=== PATIENT | female | born 1980 | race Caucasian/White ===

== ENCOUNTER 2020-10-11 14:17 | Outpatient (REF) | payer MEDICAID, SELFPAY | END 2020-10-11 14:18 | disposition home or self-care (01) | LOC: HO.LAB 14:17 | PROVIDERS: Visit Provider Internal Medicine | DX: Z20.828 Contact with and (suspected) exposure to other viral communicable diseases (principal) | CPT/HCPCS: C9803; U0003 ==

== ENCOUNTER 2021-10-28 04:28 | Emergency (ER) | payer MEDICAID, SELFPAY ==
--- NOTE | ~2021-10-28 | XR_ITS ---
EXAMINATION: XR ABDOMEN KUB CLINICAL INDICATION: Abdominal pain COMPARISON: None TECHNIQUE: 2 views of the abdomen. FINDINGS: The bowel gas pattern is normal with no evidence of ileus or obstruction. No unusual soft tissue calcifications are noted. The bones are unremarkable. XR/XR KUB IMPRESSION: Unremarkable examination.
[2021-10-28 04:37] VITALS: BP 134/91; PULSE 82; RESP 18; TEMP 36.4; O2SAT 100; BMI 28.0
[2021-10-28 04:45] VITALS: RESP 16
[2021-10-28 05:08] LABS: Appearance Urine HAZY; Color Urine YELLOW; Glucose Urine UA NEG (NEG); Leukocyte Esterase Urine NEG (NEG); Nitrite Urine NEG (NEG); Specific Gravity - Urine >= 1.030 (1.005-1.025); UACC Culture Trigger NO; Urine Blood 2+ (NEG); Urine Ketones NEG (NEG); Urine Protein NEG (NEG-TRACE)
[2021-10-28 05:10] LABS: UPreg QC Valid YES; Urine Pregnancy NEGATIVE (NEGATIVE)
[2021-10-28 05:15] LABS: Mucus Urine 2+ /LPF; Squamous Epithelial Cell Urine 2+ /LPF
[2021-10-28 05:16] LABS: Bacteria Urine 1+ /LPF; Tyrosine Crystal Urine TRACE /LPF; WBC Urine 0 /HPF (0-4)
[2021-10-28 05:23] LABS: Basophils Percent Auto 0.3 % (0-2); Eosinophils Absolute Auto 0.2 X10*3/uL (0.0-0.4); Eosinophils Percent Auto 1.5 % (0-4); Hematocrit 37.4 % (37.0-47.0); Hemoglobin 11.6 g/dl (12.0-16.0); Imm Gran Abs Auto 0.03 X10*3/uL (0.00-0.03); Imm Gran Pct Auto 0.3 % (0.0-0.4); Lymphocytes Absolute Auto 2.6 X10*3/uL (1.2-4.9); Lymphocytes Percent Auto 22.7 % (20-40); MANUAL DIFF FLAG NO; Mean Corpuscular Hemoglobin 28.3 pg (27.0-33.0); Mean Corpuscular Volume 91.2 fL (80.0-98.0); Mean Platelet Volume 9.6 fL (9.4-12.3); Monocytes Absolute Auto 0.8 X10*3/uL (0.1-1.2); Monocytes Percent Auto 6.9 % (2-11); Neutrophils Absolute Auto 7.9 x10*3/uL (2.0-8.3); Neutrophils Percent Auto 68.3 % (45-73); Platelet Count 302 X10*3/uL (160-400); Red Cell Distribution Width 13.2 % (11.0-16.0); White Blood Count 11.6 X10*3/uL (4.8-10.8)
[2021-10-28 05:44] LABS: Alanine Aminotransferase 17 U/L (0-31); Albumin Level 4.1 g/dL (3.5-5.0); Alkaline Phosphatase 42 U/L (39-117); Anion Gap 12 (12-20); Aspartate Amino Transferase 17 U/L (5-31); Bilirubin Total 0.3 mg/dL (0.0-1.0); Blood Urea Nitrogen 16 mg/dL (9-16); Calcium 9.4 mg/dL (8.4-10.2); Carbon Dioxide 25 mmol/L (22-29); Chloride 109 mmol/L (96-108); Creatinine Clr Calc Pharmacy 101.3; Estimated Glomerular Filt Rate > 60; Glucose Random 105 mg/dL (60-115); Lipase 39 U/L (8-78); Potassium 4.1 mmol/L (3.3-5.1); Sodium 142 mmol/L (135-145); Total Protein 7.2 g/dL (6.5-8.0)
[2021-10-28 06:00] LABS: Bilirubin Direct < 0.2 mg/dL (0.0-0.5)
--- NOTE | 2021-10-28 06:26 | ED_ITS ---
HPI - Abdominal Pain General Chief Complaint: Abdominal Pain Stated Complaint: abd pain/constipation Time Seen by Provider: 10/28/21 06:18 Source: patient Mode of arrival: ambulatory Limitations: no limitations History of Present Illness HPI narrative: Patient comes to the emergency room complaining of constipation for 5 days. Patient states she has not been able to move her bowels despite using [id number] [employer] brand laxatives. Patient denies fever chills, pain does not worsen with foods. Patient denies dysuria. Related Data Previous Rx's Medication Instructions Recorded polyethylene glycol 3350 17 17 g PO BID #510 g 10/28/21 gram/dose oral powder (Miralax) Allergies Allergy/AdvReac Type Severity Reaction Status Date / Time oxycodone [OXYCODONE] Allergy Unknown DIZZY,SWEAT Unverified 08/10/20 16:40 ING Review of Systems Review of Systems Constitutional : No Weight loss, No Fever, No Chills, No Night Sweats, No Fatigue, No Malaise ENT/Mouth : No Hearing loss, No Ear Pain, No Nasal Congestion, No Sinus Pain, No Hoarseness, No sore throat, No Rhinorrhea, No Swallowing Difficulty Eyes: No Eye Pain, No Swelling, No Redness, No Foreign Body, No Discharge, No Vision Changes Cardiovascular : No Chest Pain, No SOB, No Dyspnea on Exertion, No Orthopnea, No Edema, No Palpitations Respiratory : No Cough, No Sputum, No Wheezing, No Smoke Exposure, No Dyspnea Gastrointestinal : No Nausea, No Vomiting, No Diarrhea, complaining of Constipation, complaining of abdominal distension Genitourinary : no irregular bleeding, No Dysuria, No Urinary Frequency, No Hematuria, No Urinary Incontinence, No Urgency, No Flank Pain, No Urinary Flow Changes, No Hesitancy Musculoskeletal : No joint pain, No Myalgias, No Joint Swelling Skin : No Skin Lesions, No rash Neuro : No Weakness, No Numbness, No Paresthesias, No Loss of Consciousness, No Dizziness, No Headache Psych : No Anxiety/Panic, No Depression, No SI/HI/AH/VH, No Social Issues, Heme/Lymph: No Bruising, No Bleeding,No Lymphadenopathy Endocrine : No Polyuria, No Polydipsia, No Temperature Intolerance Physical Exam Vital Signs: Vital Signs: Last Vital Signs Temp 97.6 F 10/28/21 04:37 Pulse 82 10/28/21 04:37 Resp 16 10/28/21 04:45 BP 134/91 H 10/28/21 04:37 Pulse Ox 100 10/28/21 04:37 BMI result Body Mass Index 28.0 Const: Other: Appearance: Alert. Oriented X3. No acute distress. Well- appearing Eyes: Pupils equal, round and reactive to light. ENT: Pharynx normal. Neck: Normal inspection. Neck supple. No lymph nodes noted. No crepitus CVS: Normal heart rate and rhythm. Pulses normal. Normal S1 and S2 Respiratory: No respiratory distress. Breath sounds normal. No Wheezing. No rales Abdomen: Soft and nontender. No rigidity. No distention. Skin: Skin warm and dry. Normal skin color. Normal skin turgor. Extremities: No lower extremity edema. No Lacerations. No Rash Neuro: Oriented X 3. No motor deficit. No sensory deficit. Moving all extermities. No slurred speech. Course Course Course Narrative: KUB shows normal hair pattern. White blood cell count 11.6, chemistry within normal limits, LFTs within normal limits. Patient will try MiraLax this time. Patient will follow-up with her primary care physician. MDM - Abdominal Pain Lab Data Result diagrams: 10/28/21 05:16 10/28/21 05:16 Labs: Lab Results 10/28/21 10/28/21 10/28/21 Range/Units 05:02 05:02 05:16 WBC 11.6 H (4.8-10.8) X10*3/uL RBC 4.10 L (4.20-5.50) X10*6/uL Hgb 11.6 L (12.0-16.0) g/dl Hct 37.4 (37.0-47.0) % MCV 91.2 (80.0-98.0) fL MCH 28.3 (27.0-33.0) pg MCHC 31.0 (31.0-35.0) g/dl RDW 13.2 (11.0-16.0) % Plt Count 302 (160-400) X10*3/uL MPV 9.6 (9.4-12.3) fL Immature Gran % (Auto) 0.3 (0.0-0.4) % Neut % (Auto) 68.3 (45-73) % Lymph % (Auto) 22.7 (20-40) % [place] % (Auto) 6.9 (2-11) % Eos % (Auto) 1.5 (0-4) % Baso % (Auto) 0.3 (0-2) % Lymph # (Auto) 2.6 (1.2-4.9) X10*3/uL [place] # (Auto) 0.8 (0.1-1.2) X10*3/uL Eos # (Auto) 0.2 (0.0-0.4) X10*3/uL Baso # (Auto) 0.0 (0.0-0.2) X10*3/uL Abs Immat Gran (auto) 0.03 (0.00-0.03) X10*3/uL Absolute Neuts (auto) 7.9 (2.0-8.3) x10*3/uL Absolute Nucleated RBC 0.000 (0.0-0.012) X10*3/uL Nucleated RBC % (auto) 0.0 (0.0-0.2) /100WBC Sodium (135-145) mmol/L Potassium (3.3-5.1) mmol/L Chloride (96-108) mmol/L Carbon Dioxide (22-29) mmol/L Anion Gap (12-20) BUN (9-16) mg/dL Creatinine (0.5-1.4) mg/dL Estim Creat Clear Calc Estimated GFR Random Glucose (60-115) mg/dL Calcium (8.4-10.2) mg/dL Total Bilirubin (0.0-1.0) mg/dL Direct Bilirubin (0.0-0.5) mg/dL AST (5-31) U/L ALT (0-31) U/L Alkaline Phosphatase (39-117) U/L Total Protein (6.5-8.0) g/dL Albumin (3.5-5.0) g/dL Lipase (8-78) U/L Urine Color YELLOW Urine Appearance HAZY Urine pH 6.0 (5.0-8.0) Ur Specific [place] >= 1.030 H (1.005-1.025) Urine Protein NEG (NEG-TRACE) MG/DL Urine Glucose (UA) NEG (NEG) MG/DL Urine Ketones NEG (NEG) MG/DL Urine Blood 2+ H (NEG) Urine Nitrite NEG (NEG) Ur Leukocyte Esterase NEG (NEG) Urine RBC 5-9 H (0) /HPF Urine WBC 0 (0-4) /HPF Ur Squamous Epith Cells 2+ /LPF Tyrosine Crystals TRACE /LPF Urine Bacteria 1+ /LPF Urine Mucus 2+ /LPF Urine Test NEGATIVE (NEGATIVE) 10/28/21 Range/Units 05:16 WBC (4.8-10.8) X10*3/uL RBC (4.20-5.50) X10*6/uL Hgb (12.0-16.0) g/dl Hct (37.0-47.0) % MCV (80.0-98.0) fL MCH (27.0-33.0) pg MCHC (31.0-35.0) g/dl RDW (11.0-16.0) % Plt Count (160-400) X10*3/uL MPV (9.4-12.3) fL Immature Gran % (Auto) (0.0-0.4) % Neut % (Auto) (45-73) % Lymph % (Auto) (20-40) % [place] % (Auto) (2-11) % Eos % (Auto) (0-4) % Baso % (Auto) (0-2) % Lymph # (Auto) (1.2-4.9) X10*3/uL [place] # (Auto) (0.1-1.2) X10*3/uL Eos # (Auto) (0.0-0.4) X10*3/uL Baso # (Auto) (0.0-0.2) X10*3/uL Abs Immat Gran (auto) (0.00-0.03) X10*3/uL Absolute Neuts (auto) (2.0-8.3) x10*3/uL Absolute Nucleated RBC (0.0-0.012) X10*3/uL Nucleated RBC % (auto) (0.0-0.2) /100WBC Sodium 142 (135-145) mmol/L Potassium 4.1 (3.3-5.1) mmol/L Chloride 109 H (96-108) mmol/L Carbon Dioxide 25 (22-29) mmol/L Anion Gap 12 (12-20) BUN 16 (9-16) mg/dL Creatinine 0.70 (0.5-1.4) mg/dL Estim Creat Clear Calc 101.3 Estimated GFR > 60 Random Glucose 105 (60-115) mg/dL Calcium 9.4 (8.4-10.2) mg/dL Total Bilirubin 0.3 (0.0-1.0) mg/dL Direct Bilirubin < 0.2 (0.0-0.5) mg/dL AST 17 (5-31) U/L ALT 17 (0-31) U/L Alkaline Phosphatase 42 (39-117) U/L Total Protein 7.2 (6.5-8.0) g/dL Albumin 4.1 (3.5-5.0) g/dL Lipase 39 (8-78) U/L Urine Color Urine Appearance Urine pH (5.0-8.0) Ur Specific [place] (1.005-1.025) Urine Protein (NEG-TRACE) MG/DL Urine Glucose (UA) (NEG) MG/DL Urine Ketones (NEG) MG/DL Urine Blood (NEG) Urine Nitrite (NEG) Ur Leukocyte Esterase (NEG) Urine RBC (0) /HPF Urine WBC (0-4) /HPF Ur Squamous Epith Cells /LPF Tyrosine Crystals /LPF Urine Bacteria /LPF Urine Mucus /LPF Urine Test (NEGATIVE) Discharge Plan Discharge Clinical Impression: Constipation Qualifiers: Constipation type: unspecified constipation type Qualified Code(s): K59.00 - Constipation, unspecified Patient Disposition: Home, Self-Care Instructions: Constipation (ED) Additional Instructions: Please follow-up with your primary care physician tomorrow. If you have any worsening or new symptoms, please return to the emergency room or call 911 Prescriptions: New polyethylene glycol 3350 [Miralax] 17 gram/dose powder 17 g PO BID Qty: 510 RF: 0 PMFSH Social History Social History Advance Directives: No Advance Directives Information Provided: Yes
[2021-10-28 06:35] VITALS: BP 126/83; PULSE 79; RESP 16; TEMP 36.6; O2SAT 100
== END 2021-10-28 06:48 | disposition home or self-care (01) ==
PROVIDERS: Emergency Provider Emergency Medicine
DX: K59.00 Constipation, unspecified (principal)
CPT/HCPCS: 36415; 74018; 80053; 81001; 81025; 82248; 83690; 85025; 99283; 99284

== ENCOUNTER 2022-03-08 12:15 | Outpatient (REF) | payer MEDICAID, SELFPAY ==
--- NOTE | ~2022-03-08 | XR_ITS ---
EXAMINATION: XR CHEST CLINICAL INFORMATION: Preoperative assessment COMPARISON: 08/11/2018 TECHNIQUE: 2 views of the chest were obtained. FINDINGS: No significant abnormality is noted involving the heart, lungs, mediastinum, bony thorax or soft tissues. XR/XR chest 2V IMPRESSION: Unremarkable examination.
== END 2022-03-08 12:16 | disposition home or self-care (01) ==
LOC: HO.XRAY 12:15
PROVIDERS: Absent Provider Internal Medicine; PCP Internal Medicine; Visit Provider Family Medicine
DX: Z01.818 Encounter for other preprocedural examination (principal)
CPT/HCPCS: 71046

== ENCOUNTER 2024-09-24 11:07 | Outpatient (REF) | payer MEDICAID, SELFPAY ==
[2024-09-24 13:29] LABS: MANUAL DIFF FLAG NO
[2024-09-24 13:38] LABS: Basophils Percent Auto 0.7 % (0-2); Eosinophils Absolute Auto 0.1 X10*3/uL (0.0-0.4); Eosinophils Percent Auto 1.3 % (0-4); Hematocrit 34.8 % (37.0-47.0); Hemoglobin 11.2 g/dl (12.0-16.0); Imm Gran Abs Auto 0.01 X10*3/uL (0.00-0.03); Imm Gran Pct Auto 0.2 % (0.0-0.4); Lymphocytes Absolute Auto 1.8 X10*3/uL (1.2-4.9); Mean Corpuscular HGB Conc 32.2 g/dl (31.0-35.0); Mean Corpuscular Hemoglobin 28.8 pg (27.0-33.0); Mean Corpuscular Volume 89.5 fL (80.0-98.0); Mean Platelet Volume 10.2 fL (9.4-12.3); Monocytes Absolute Auto 0.4 X10*3/uL (0.1-1.2); Monocytes Percent Auto 6.6 % (2-11); Neutrophils Absolute Auto 3.2 x10*3/uL (2.0-8.3); Neutrophils Percent Auto 58.2 % (45-73); Platelet Count 343 X10*3/uL (160-400); Red Blood Count 3.89 X10*6/uL (4.20-5.50); Red Cell Distribution Width 13.2 % (11.0-16.0); White Blood Count 5.5 X10*3/uL (4.8-10.8)
[2024-09-24 14:22] LABS: Iron 124 mcg/dL (30-160); Percent Iron Saturation 43 % (15-50); Total Iron Binding Capacity 288 mcg/dL (228-428); Unsaturated Iron Binding 164 ug/dL
[2024-09-24 14:41] LABS: Folate 14.7 ng/mL (> or = 4.0); Vitamin B12 342 pg/mL (200-900)
== END 2024-09-24 11:08 | disposition home or self-care (01) ==
LOC: HO.HHCL 11:07
PROVIDERS: Visit Provider Internal Medicine
DX: D50.8 Other iron deficiency anemias (principal)
CPT/HCPCS: 36415; 82607; 82746; 83540; 85025

== ENCOUNTER 2025-01-28 08:57 | Emergency (ER) | payer MEDICAID, SELFPAY ==
[2025-01-28 09:20] VITALS: BP 121/81; PULSE 86; RESP 18; TEMP 36.4; O2SAT 99; BMI 29.4
[2025-01-28 09:43] LABS: MANUAL DIFF FLAG NO
[2025-01-28 09:52] LABS: IDNOW Serial# 58CA691E; Strep A Nucleic Acid Negative (Negative)
[2025-01-28 09:54] LABS: Basophils Percent Auto 0.6 % (0-2); Eosinophils Absolute Auto 0.1 X10*3/uL (0.0-0.4); Eosinophils Percent Auto 1.1 % (0-4); Hematocrit 34.9 % (37.0-47.0); Hemoglobin 11.4 g/dl (12.0-16.0); Lymphocytes Absolute Auto 1.8 X10*3/uL (1.2-4.9); Lymphocytes Percent Auto 37.3 % (20-40); Mean Corpuscular HGB Conc 32.7 g/dl (31.0-35.0); Mean Corpuscular Hemoglobin 28.6 pg (27.0-33.0); Mean Corpuscular Volume 87.5 fL (80.0-98.0); Mean Platelet Volume 9.7 fL (9.4-12.3); Monocytes Absolute Auto 0.4 X10*3/uL (0.1-1.2); Monocytes Percent Auto 8.1 % (2-11); Neutrophils Absolute Auto 2.5 x10*3/uL (2.0-8.3); Neutrophils Percent Auto 52.9 % (45-73); Platelet Count 317 X10*3/uL (160-400); Red Blood Count 3.99 X10*6/uL (4.20-5.50); Red Cell Distribution Width 13.3 % (11.0-16.0); White Blood Count 4.7 X10*3/uL (4.8-10.8)
[2025-01-28 10:07] LABS: Alanine Aminotransferase 30 U/L (0-31); Albumin Level 4.2 g/dL (3.5-5.0); Alkaline Phosphatase 45 U/L (39-117); Anion Gap 9 (12-20); Aspartate Amino Transferase 24 U/L (5-31); Bilirubin Total 0.7 mg/dL (0.0-1.0); Blood Urea Nitrogen 13 mg/dL (9-16); Calcium 9.4 mg/dL (8.4-10.2); Carbon Dioxide 30 mmol/L (22-29); Chloride 104 mmol/L (96-108); Creatinine Clr Calc Pharmacy 92.9; Estimated Glomerular Filt Rate > 60; Glucose Random 97 mg/dL (60-115); Potassium 4.2 mmol/L (3.3-5.1); Sodium 139 mmol/L (135-145); Total Protein 7.3 g/dL (6.5-8.0)
[2025-01-28 10:08] LABS: HCG Quantitative < 2 mIU/mL
--- NOTE | 2025-01-28 12:07 | ED_ITS ---
HPI - General Adult General Chief complaint: General Medical Stated complaint: Pain in breasts Time Seen by Provider: 01/28/25 12:06 Source: patient, RN notes reviewed, old records reviewed and unit leader Mode of arrival: ambulatory Limitations: language barrier History of Present Illness ED Provider: Jaycob [facility] narrative: patient is a 44-year-old Vietnamese-speaking female presenting to the emergency department with complaint of bilateral breast tenderness over the past 2 weeks. Last menstrual period was January 19 and patient reports that some breast tenderness is normal for her around her menses, however, this tenderness is lasting longer than normal. She denies any lumps or masses. Denies any discharge or drainage from nipples. Also reports that she had a URI around 3 months ago and is continuing to have a dry sensation to her throat. Denies recent fevers. Denies cough or shortness of breath. complaint: breast tenderness Onset (ago): week(s) Location: chest Radiation: non-radiation Severity: moderate Quality: aching Pain Consistency: colicky Relieving factors: none Exacerbating factors: none Associated symptoms: denies other symptoms Treatments prior to arrival: none Related Data Previous Rx's ?Medication ?Instructions ?Recorded polyethylene glycol 3350 17 17 g PO BID #510 grams 10/28/21 gram/dose oral powder (Miralax) Allergies Allergy/AdvReac Type Severity Reaction Status Date / Time oxycodone [OXYCODONE] Allergy Unknown DIZZY,SWEAT Verified 01/28/25 09:21 ING Review of Systems 2 Review of Systems: As per HPI Yes all other systems are reviewed and are negative Constitutional: Constitutional: Reports as per HPI [facility] Social History Social History Advance Directives: No Advance Directives Information Provided: Yes Do you have a plan to hurt others: No Plan Physical Exam ED Vital Signs: Vital Signs - 24 hr 01/28/25 09:20 01/28/25 12:17 Temperature 97.6 F Pulse Rate 86 91 Respiratory Rate 18 16 Blood Pressure 121/81 120/77 Pulse Oximetry 99 99 Oxygen Delivery Method Room Air Room Air BMI result Body Mass Index 29.4 Vital signs have been reviewed and appear to be correct. Blood pressure normal. Heart rate normal. Respiratory rate normal. Temperature normal. Oxygen saturation normal. Const General: cooperative, healthy appearing and no acute distress Orientation/consciousness: oriented to person, oriented to place, oriented to time and patient oriented x3 Limitations: no limitations HENMT Head: Yes normocephalic and Yes atraumatic Ears: external ears normal General nose exam: Normal external nose present Face and sinus: Yes face symmetric Mouth: oropharynx normal and moist mucous membranes Throat: Yes posterior oropharynx normal, Yes uvula midline and No uvular edema Eyes Pupils: Equal, round and reactive pupils present Neck Neck: Yes normal visual inspection, Yes no lymphadenopathy and Yes supple Chest Chest palpation & inspection: normal inspection of the chest and normal palpation of entire chest wall Breast/axilla inspection: normal inspection of the breasts and normal inspection of the axillae Breast/axilla palpation: normal palpation of the breasts, normal palpation of the axillae and no axillary lymphadenopathy Resp Effort & Inspection: normal respiratory effort and able to speak in complete sentences Auscultation: clear to auscultation bilaterally Cardio Rate: regular rate Rhythm: regular rhythm Heart sounds: S1 normal heart sound present and S2 normal heart sound present GI Palpation (GI): Soft to palpation and nontender Auscultation: normoactive bowel sounds General: Yes no CVA tenderness Back/Spine/Pelvis Back: no CVA tenderness Skin General skin exam: elasticity normal and turgor normal Neuro General: oriented to person, oriented to place, oriented to time, patient oriented x3, moves all extremities, no focal motor deficits and CN's II-XI intact bilaterally Cranial nerves: Yes Equal, round and reactive pupils present Cognition (Neuro): normal cognition Extrem General: Yes full ROM, Yes no pedal edema and Yes no calf tenderness Psych Mental Status: mental status grossly normal Affect: normal affect Thought process: Normal thought process present Medical Decision Making Medical Decision Making MDM Narrative: patient is a 44-year-old Vietnamese-speaking female presenting to the emergency department with complaint of bilateral breast tenderness over the past 2 weeks. On exam patient is awake, A+Ox3, VS WNL, afebrile, normal neurological exam without focal deficits, physical exam findings as above. Given reported symptoms and physical exam findings, initial differential includes but is not limited to breast mass, cellulitis/abscess, cyclical breast pain, strep pharyngitis. No mass, abscess or cellulitis noted on physical exam. Labs unremarkable. Strep swab negative. No axillary, cervical lymphadenopathy noted on exam. Advised patient to follow-up with OBGYN this week. Return precautions discussed at bedside. Patient verbalized understanding of and agreement with plan. In-person slug press operator was utilized for all interactions, assessments, and discussions. Differential Diagnosis Differential Diagnoses: The differential diagnosis associated with the presentation includes As per [facility] Lab Data [facility] Lab Attestation statement: I reviewed the patient's lab results. as per [facility] 01/28/25 09:36 01/28/25 09:36 Labs: Lab Results 01/28/25 01/28/25 Range/Units 09:36 09:37 WBC 4.7 L (4.8-10.8) X10*3/uL RBC 3.99 L (4.20-5.50) X10*6/uL Hgb 11.4 L (12.0-16.0) g/dl Hct 34.9 L (37.0-47.0) % MCV 87.5 (80.0-98.0) fL MCH 28.6 (27.0-33.0) pg MCHC 32.7 (31.0-35.0) g/dl RDW 13.3 (11.0-16.0) % Plt Count 317 (160-400) X10*3/uL MPV 9.7 (9.4-12.3) fL Immature Gran % (Auto) 0.0 (0.0-0.4) % Neut % (Auto) 52.9 (45-73) % Lymph % (Auto) 37.3 (20-40) % [place] % (Auto) 8.1 (2-11) % Eos % (Auto) 1.1 (0-4) % Baso % (Auto) 0.6 (0-2) % Lymph # (Auto) 1.8 (1.2-4.9) X10*3/uL [place] # (Auto) 0.4 (0.1-1.2) X10*3/uL Eos # (Auto) 0.1 (0.0-0.4) X10*3/uL Baso # (Auto) 0.0 (0.0-0.2) X10*3/uL Abs Immat Gran (auto) 0.00 (0.00-0.03) X10*3/uL Absolute Neuts (auto) 2.5 (2.0-8.3) x10*3/uL Absolute Nucleated RBC 0.000 (0.0-0.012) X10*3/uL Nucleated RBC % (auto) 0.0 (0.0-0.2) /100WBC Sodium 139 (135-145) mmol/L Potassium 4.2 (3.3-5.1) mmol/L Chloride 104 (96-108) mmol/L Carbon Dioxide 30 H (22-29) mmol/L Anion Gap 9 L (12-20) BUN 13 (9-16) mg/dL Creatinine 0.73 (0.5-1.4) mg/dL Estim Creat Clear Calc 92.9 Estimated GFR > 60 Random Glucose 97 (60-115) mg/dL Calcium 9.4 (8.4-10.2) mg/dL Total Bilirubin 0.7 (0.0-1.0) mg/dL AST 24 (5-31) U/L ALT 30 (0-31) U/L Alkaline Phosphatase 45 (39-117) U/L Total Protein 7.3 (6.5-8.0) g/dL Albumin 4.2 (3.5-5.0) g/dL Beta HCG, Quant < 2 mIU/mL S. pyogenes GrpA KAM Negative (Negative) External Record Review External record reviewed: Inpatient record, Office record and Outpatient record Discharge Plan Discharge Clinical Impression: Breast tenderness in female Patient Disposition: Home, Self-Care Instructions: Breast Self Exam for Women (ED) Additional Instructions: You were evaluated in the emergency department today for breast tenderness. Your physical exam was reassuring but we recommend that you follow up with your PACK OPERATOR this week. Return to the emergency department if you develop new or concerning symptoms. Prescriptions: No Action polyethylene glycol 3350 [Miralax] 17 gram/dose powder 17 g PO BID Qty: 510 0RF Print Language: Vietnamese
[2025-01-28 12:17] VITALS: BP 120/77; PULSE 91; RESP 16; O2SAT 99
[2025-01-28 13:14] VITALS: BP 120/77; PULSE 91; RESP 16; TEMP 36.9; O2SAT 99
--- OUTSIDE RECORDS SUMMARY | 2025-01-28 14:25 | XMS_ITS | Encounter Summary ---
Author Organization [employer] Address [address] [place] [address] Care Team Providers Care Beef Killer Name Role Phone Lucio Arroyo MD Primary Care Prov ider Reason for Visit * Reason Comments Med Refill Encounter Details Date Type Department Care Team ([facility] st Contact Info) Description 10/10/2024 Refill [facility] [address] [place], [place] [phone] Lucio Arroyo MD [address] [place] [address] Acute periapical abscess Social History Tobacco Use Types Packs/Day Years Used Date Smoking Tobacco: Never Passive Smoke Exposure: Never Smokeless Tobacco: Never Alcohol Use Standard Drinks/Week Comments Never 0 (1 standard drink = 0.6 oz pur e alcohol) Depression Answer Date Recorded Patient Health Questionnaire-9 Score 0 02/26/2024 Patient Health Questionnaire-9 Score 0 02/26/2024 Last PHQ-9: Questionnaire Data Not on file 0 02/26/2024 Housing Stability Answer Date Recorded What is your housing situation today? I have crow carol 02/26/[address] you li ve. Do you have problems with any of the following? None of the above 02/26/2024 Food Insecurity Answer Date Recorded Within the past 12 months, y ou worried that your food would run out before you got money to buy more: Never True 02/26/2024 Within the past 12 months,th e food you bought just didn't last and you didn't have enough money to get more: Never True 02/2024 Transportation Answer Date Recorded In the past 12 months, has l ack of transportation kept you from medical appts, meetings, work or from getting things needed for daily living? No 02/26/2024 Utilities Answer Date Recorded In the past 12 months, has t he electric, gas, oil or water company threatened to shut off services in your home? No 02/26/2024 Depression Answer Date Recorded Patient Health Questionnaire-2 Score 0 02/26/2024 Comments No Sex and Gender Information Value Date Recorded Sex Assigned at Female 09/23/2022 10:15 AM EDT Legal Sex Female 10:15 AM EDT Gender Identity Female 09/23/2022 10:15 AM EDT Sexual Orientation Straight 09/23/2022 10 :15 AM EDT documented as of this encounter Plan of Treatment Upcoming Encounters Date Type Department Care Team (Late st Contact Info) Description 03/17/2025 11:00 AM EDT Office Visit [facility] [address] [place] [address] Liyah Cisneros documented as of this encounter Visit Diagnoses Diagnosis Acute periapical abscess documented in this encounter Additional Health Concerns Assessment Noted Time PHQ-9 Depression Total Score: 0 02/26/20 24 10:35 AM EDT documented as of this encounter Care Teams Beef Killer Relationship Specialty Start Date End Date Lucio Arroyo MD [address] [place] [address] PCP - General Internal Medicine 04/03/20 documented as of this encounter
--- OUTSIDE RECORDS SUMMARY | 2025-01-28 14:25 | XMS_ITS | Encounter Summary ---
Author Organization [employer] Address [address] [facility] 7t [place] [address] Care Team Providers Care Periodicals Clerk Name Role Phone Lucio Arroyo MD Primary Care Prov ider Encounter Details Date Type Department Care Team (Late st Contact Info) Description 01/28/2025 Orders Only GENERIC EXTERNAL DATA DEPARTMENT Provider, Generic External Data Social History Tobacco Use Types Packs/Day Years [...] your housing situation today? I have crow medina 02/26/[address] you li [...] Description 03/17/2025 11:00 AM EDT Office Visit [facility] [address] [facility] [place] [address] Liyah Cisneros documented as of this encounter Procedures Procedure Name Priority Date/Time Associated Diagnosis Comments STREP A NUCLEIC ACID Routine 01/28/2025 9:37 AM EST CBC WITH AUTO DIFFERENTIAL Routine 01/28/2025 9:36 AM EST HCG, TOTAL, QN Routine 01/28/2025 9:36 AM EST COMPREHENSIVE METABOLIC PANEL Routine 01/28/2025 9:36 AM EST documented in this encounter Results * Strep A Nucleic Acid (01/28/2025 9:37 AM EST) IDNOW SERIAL# [id number] [facility] Strep A Nucleic Acid Negative Negative [facility] Comment:All test results mus t be correlated with clinical findings.This test has not been evaluated for monitoring treatment ofinfection.Additional follow-up testing using the culture method isrequired if the result is negative and clinical symptomspersist, or in the event of an acute rheumatic feveroutbreak. 01/28/2025 9:37 AM EST 01/28/2025 9:41 AM EST us Generic External Data Provider LAB MICROBIOLOGY - GENERAL ORDERABLES Final Result [facility] [address] [place] [address] [phone] * hCG, Total, Quantitative (01/28/2025 9:36 AM EST) Pathologist [facility] HCG Quantitative <2 mIU/mL [facility] Comment:Weeks post LMP Appro ximate hCG(Last Menstrual Period) Range (mIU/ml)3 - 4 weeks 9 - 1304 - 5 weeks 75 - 2,6005 - 6 weeks 850 - 20,8006 - 7 weeks 4000 - 100,2007 - 12 weeks 11,500 - 289,95134 - 16 weeks 18,300 - 137,15622 - 29 weeks (2nd trimester) 1,400 - 53,09198 - 41 weeks (3rd trimester) 940 - 60,000The Shahid B- hCG assay is used for the early detection ofpregnancy; it cannot be used to diagnose any conditionunrelated to . If a B-hCG level is not supportedby the clinical evidence, results should be confirmed by analternative method (qualitative urine hCG, for example). 01/28/2025 9:36 AM EST 01/28/2025 9:41 AM EST us Generic External Data Provider LAB BLOOD ORDERAB LES Final Result [facility] [address] [place] [address] [phone] * (ABNORMAL) Comprehensive Metabolic Panel (01/28/2025 9:36 AM EST) [facility] Sodium 139 135 - 145 mmol/L [facility] Potassium 4.2 3.3 - 5.1 mmol/L [facility] Chloride 104 96 - 108 mmol/L [facility] Carbon Dioxide 30(H) 22 - 29 mmol/L [facility] Anion Gap 9(L) 12 - 20 [facility] Urea Nitrogen (BUN) 13 9 - 16 mg/dL [facility] Creatinine, Serum 0.73 0.5 - 1.4 mg/dL [facility] Creatinine Clr Calc Pharmacy 92.9 [facility] Comment:Provided height and weight: 157.48 cm,73.028 kg.eGFR (calculated from the MDRD study equation) and eCrCl(calculated from the Cockcroft-Gault equation) are based ondifferent parameters and may not yield comparable results.If eCrCl result is absurd, please check patient'sheight/weight. Estimated Glomerular Filt Rate >60 [facility] Comment:Chronic Kidney Disea se: Estimated GFR < 60 mL/min/1.36o7Flntth Kidney Disease: Estimated GFR < 15 mL/min/1.73m2 Glucose 97 60 - 115 mg/dL [facility] Calcium 9.4 8.4 - 10.2 mg/dL [facility] Bilirubin, Total 0.7 0.0 - 1.0 mg/dL [facility] Aspartate Amino Transferase 24 5 - 31 U/L [facility] Alanine Aminotransferase 30 0 - 31 U/L [facility] Total Protein 7.3 6.5 - 8.0 g/dL [facility] Albumin Level 4.2 3.5 - 5.0 g/dL [facility] Alkaline Phosphatase 45 39 - 117 U/L [facility] 01/28/2025 9:36 AM EST 01/28/2025 9:41 AM EST us Generic External Data Provider LAB BLOOD ORDERAB LES Final Result [facility] [address] [place] [phone] * (ABNORMAL) CBC auto differential (01/28/2025 9:36 AM EST) White Blood Count 4.7(L) 4.8 - 10.8 X10*3/uL [facility] Red Blood Count 3.99(L) 4.20 - 5.50 X10*6/uL [facility] Hemoglobin 11.4(L) 12.0 - 16.0 g/dl [facility] Hematocrit 34.9(L) 37.0 - 47.0 % [facility] Mean Corpuscular Volume 87.5 80.0 - 98.0 fL [facility] Mean Corpuscular Hemoglobin 28.6 27.0 - 33.0 pg [facility] Mean Corpuscular HGB Conc 32.7 31.0 - 35.0 g/dl [facility] Red Cell Distribution Width 13.3 11.0 - 16.0 % [facility] Platelet Count 317 160 - 400 X10*3/uL [facility] Mean Platelet Volume 9.7 9.4 - 12.3 fL [facility] Neutrophils Percent Auto 52.9 45 - 73 % [facility] Imm Gran Pct Auto 0.0 0.0 - 0.4 % [facility] Lymphocytes Percent Auto 37.3 20 - 40 % [facility] Monocytes Percent Auto 8.1 2 - 11 % [facility] Eosinophils Percent Auto 1.1 0 - 4 % [facility] Basophils Percent Auto 0.6 0 - 2 % [facility] NRBC Pct Auto 0.0 0.0 - 0.2 /100WBC [facility] Neutrophils Absolute Auto 2.5 2.0 - 8.3 x10*3/uL [facility] Imm Gran Abs Auto 0.00 0.00 - 0.03 X10*3/uL [facility] Lymphocytes Absolute Auto 1.8 1.2 - 4.9 X10*3/uL [facility] Monocytes Absolute Auto 0.4 0.1 - 1.2 X10*3/uL [facility] Eosinophils Absolute Auto 0.1 0.0 - 0.4 X10*3/uL [facility] Basophils Absolute Auto 0.0 0.0 - 0.2 X10*3/uL [facility] NRBC Abs Auto 0.000 0.0 - 0.012 X10*3/uL [facility] 01/28/2025 9:36 AM EST 01/28/2025 9:41 AM EST us Generic External Data Provider LAB BLOOD ORDERAB LES Final Result [facility] [address] [place] [phone] documented in this encounter Visit Diagnoses Not on filedocumented in this encounter Additional Health Concerns Assessment Noted Time PHQ-9 Depression Total Score: 0 02/26/20 24 10:35 AM EDT documented as of this encounter Care Teams Periodicals Clerk Relationship Specialty Start Date End Date Lucio Arroyo MD [address] [place] [phone] PCP - General Internal Medicine 04/03/20 documented as of this encounter
--- OUTSIDE RECORDS SUMMARY | 2025-01-28 14:25 | XMS_ITS | Encounter Summary ---
Author Organization [employer] Address [address] [place] [address] 7[address] [place] [address] Care Team Providers Care Windows System Admin Name Role Phone Lucio Arroyo MD Primary Care Prov ider Reason for Visit * Reason Comments Med Refill Encounter Details Date Type Department Care Team (Late st Contact Info) Description 06/20/2023 Refill [facility] [address] [place] [address] Yolande Dexter DDS [address] [place] [address] Acute periapical abscess Social History Tobacco Use Types Packs/Day Years Used Date Smoking Tobacco: Never Passive Smoke Exposure: Never Smokeless Tobacco: Never Alcohol Use Standard Drinks/Week Comments Never 0 (1 standard drink = 0.6 oz pur e alcohol) Depression Answer Date Recorded Patient Health Questionnaire-9 Score 0 11/07/2022 Depression Answer Date Recorded Patient Health Questionnaire-2 Score 0 11/07/2022 Comments No Sex and Gender Information Value Date Recorded Sex Assigned at Female 09/23/2022 10:15 AM EDT Legal Sex Female 10:15 AM EDT Gender Identity Female 09/23/2022 10:15 AM EDT Sexual Orientation Straight 09/23/2022 10 :15 AM EDT documented as of this encounter Miscellaneous Notes * Telephone Encounter - Yolande Dexter DDS - 06/20/2023 1:37 PM EDT Approving, but needs appt for additional refills. documented in this encounter Plan of Treatment Upcoming Encounters Date Type Department Care Team (Late st Contact Info) Description 03/17/2025 11:00 AM EDT Office Visit [facility] [address] [place] [address] Liyah Cisneros documented as of this encounter Visit Diagnoses Diagnosis Acute periapical abscess documented in this encounter Additional Health Concerns Assessment Noted Time PHQ-9 Depression Total Score: 0 11/07/20 22 12:00 PM EST documented as of this encounter Care Teams Windows System Admin Relationship Specialty Start Date End Date Lucio Arroyo MD [address] [place] [phone] PCP - General Internal Medicine 04/03/20 documented as of this encounter
--- OUTSIDE RECORDS SUMMARY | 2025-01-28 14:25 | XMS_ITS | Clinical Summary ---
Author Organization [facility] it Address [address] [place] [address] Care Team Providers Care Floor Finisher Helper Name Role Phone Unavailable Primary Care Provider Unavailabl e Surgical History Surgery Date Site/Laterality Comments CERVICAL BIOPSY W/ LOOP ELECTRODE EXCISION PROCEDURE: MS CONIZATION CERVIX W/WO D&C RPR ELTRD EXC; COMMENT: unable to locate LEEP record Medical History Medical History Date Comments Anemia DX:Anemia Anxiety state DX:Anxiety state Venereal disease DX:Venereal dis ease Abnormal cytological finding in specimen from cervix DX:Abnormal cytological find ing in specimen from cervix Family History Medical History Relation Name Comments Pancreatic cancer Father Arthritis Mother Other: cancer uterine Other negati ve Diabetes Paternal Grandfather d Other: Autism and Developmental delay Son 1 Félix figueroa Breast cancer Neg Hx Colon cancer Neg Hx Ovarian cancer Neg Hx Relation Name Status Comments Brother 7 Father Mother Other Paternal Grandfather Sister 6 Son 1 Sahil Alive Son 2 Vinay Alive Son 3 Vinh Alive Son 4 Yehuda Alive Social History Tobacco Use Types Packs/Day Years Used Date Smoking Tobacco: Never Smokeless Tobacco: Never Alcohol Use Standard Drinks/Week Comments No 0 (1 standard drink = 0.6 oz pur e alcohol) Comments Unknown Sex and Gender Information Value Date Recorded Sex Assigned at Not on file Legal Sex Female 10:12 AM EST Gender Identity Not on file Sexual Orientation Not on file Obstetrics History Last Filed Vital Signs Vital Sign Reading Time Taken Comments Blood Pressure 117/78 12/08/2023 1:09 PM EST Pulse 85 12/08/2023 1:09 PM EST Temperature - - Respiratory Rate - - Oxygen Saturation - - Inhaled Oxygen Concentration - - Weight 74.4 kg (164 lb) 12/08/2023 1:09 PM EST Height 157.5 cm (5' 2 ) 12/08/2023 1:09 PM EST Body Mass Index 30 12/08/2023 1:09 PM EST Plan of Treatment Health Maintenance Due Date Last Done Comments Breast Cancer Screening 1981 Hepatitis B Vaccines (1 of 3 - 19+ 3-dose series) 2000 Cervical Cancer Screening: P ap Smear 09/28/2022 09/28/2021, 02/16/2018, 02/16/2018 Depression Screening 10/22/2022 HIV Screening 10/22/2022 Hepatitis C Screening 10/22/2022 Social Influencers of Health Screening 10/22/2022 COVID-19 Vaccine (1 - 2023-2 5 season) 2024 Influenza Vaccine (#1) 2024 DTaP,Tdap,and Td Vaccines (2 - Td or Tdap) 02/02/2029 02/02/2019 HIB Vaccines Aged Out No longer eligi ble based on patient's age to complete this topic HPV Vaccines Aged Out No longer eligi ble based on patient's age to complete this topic Hepatitis A Vaccines Aged Out No long er eligible based on patient's age to complete this topic IPV Vaccines Aged Out No longer eligi ble based on patient's age to complete this topic MMR Vaccines Aged Out No longer eligi ble based on patient's age to complete this topic Meningococcal ACWY Vaccine Aged Out N o longer eligible based on patient's age to complete this topic Meningococcal B Vacine Aged Out No lo nger eligible based on patient's age to complete this topic Pneumococcal Vaccine: Pediatrics (0 to 5 Years) and At-Risk Patients (6 to 64 Years) Aged Out No longer eligible b ased on patient's age to complete this topic RSV Immunization Patients Under 20 months Aged Out No longer eligible b ased on patient's age to complete this topic Varicella Vaccines Aged Out No longer eligible based on patient's age to complete this topic Procedures Procedure Name Priority Date/Time Associated Diagnosis Comments PAP SMEAR Routine 09/28/2021 from Last 3 Months or Most Recently Relevant to Health Maintenance Results * Pap smear (09/28/2021) 09/28/2021 Narrative HISTORICAL TESTING LAB RESULTING AGENCY - 10/17/2021 12:40 PM EST [id number] THINPREP PAP, IMAGED: NEGATIVE FOR SQUAMOUS INTRAEPITHELIAL LESION AND MALIGNANCY . REACTIVE CELLULAR CHANGES. NOTE: THE PAP TEST IS A SCREENING TEST WITH AN INHERENT FALSE NEGATIVE RATE. AUTOMATED PRESCREENING OF ALL LIQUID BASED SPECIMENS IS PERFORMED BY THE THINPREP IMAGING SYSTEM UNLESS OTHERWISE STATED. JAMARCUS TORRES(ASCP) (CASE SCREENED 10 15 2021) CLAIR PATEL M.D. , PATHOLOGIST (CASE ELECTRONICALLY SIGNED 10 16 2021) RESULT OF APTIMA HIGH RISK HPV ASSAY: HIGH RISK HPV: ??POSITIVE (SEROTYPES 16,18,31,33,35,39,45,51,52,56,58,59,66,68) RESULTS OF APTIMA HPV 16 AND 18/45 GENOTYPE ASSAY: HPV 16: ??NEGATIVE HPV 18/45: ??POSITIVE COMPLETED ON 2021-10-04 ADEQUACY: SATISFACTORY ENDOCERVICAL/TRANSFORMATION ZONE COMPONENT PRESENT. SOURCE: THINPREP PAP HPV ANY DX: ??REFLEX 16 AND 18, CERVICAL, IMAGED CLINICAL INFORMATION: HPV ANY DIAGNOSIS. HORMONES, POS HG POSITIVE, Z12.4 us Joao De Souza MD LAB CYTOLOGY ORDERABLES Final Result HISTORICAL TESTING LAB RESULTING AGENCY from Last 3 Months or Most Recently Relevant to Health Maintenance
--- OUTSIDE RECORDS SUMMARY | 2025-01-28 14:25 | XMS_ITS | Encounter Summary ---
Author Organization [employer] Address [address] [facility] 7t [place] [address] Care Team Providers Care Freelance Photographer Name Role Phone Lucio Arroyo MD Primary Care Prov ider Encounter Details Date Type Department Care Team (Late st Contact Info) Description 01/24/2023 Abstract [facility] [address] [place] [address] GalanYolande Prakash, DDS [address] [place] [address] Social History Tobacco Use Types Packs/Day Years [...] Orientation Straight 09/23/2022 10 :15 AM EDT COVID-19 Exposure Response Date Recorded In the last 10 days, have yo u been in contact with someone who was confirmed or suspected to have Coronavirus/COVID-19? No / Unsure 01/15/2023 9:34 AM EST documented as of this encounter Plan of Treatment Upcoming Encounters Date Type Department Care Team (Late st Contact Info) Description 03/17/2025 11:00 AM EDT Office Visit [facility] [address] [place] [address] Liyah Cisneros documented as of this encounter Visit Diagnoses Not on filedocumented in this encounter Additional Health Concerns Assessment Noted Time PHQ-9 Depression Total Score: 0 11/07/20 22 12:00 PM EST documented as of this encounter Care Teams Freelance Photographer Relationship Specialty Start Date End Date Lucio Arroyo MD [address] [place] [phone] PCP - General Internal Medicine 04/03/20 documented as of this encounter
--- OUTSIDE RECORDS SUMMARY | 2025-01-28 14:25 | XMS_ITS | Encounter Summary ---
Author Organization [employer] Address [address] [facility] [address] [place] [address] Care Team Providers Care Polysomnographic Tech Name Role Phone Lucio Arroyo MD Primary Care Prov ider Reason for Visit * Reason Comments Med Refill Encounter Details Date Type Department Care Team ([facility] st Contact Info) Description 01/02/[address] [facility] [address] [place], [place] [phone] Lucio Arroyo MD [address] [place] [address] Acute periapical abscess Social History Tobacco Use [...] Description 03/17/2025 11:00 AM EDT Office Visit [facility] [address] [place] [address] Liyah Cisneros documented as of this encounter Visit Diagnoses Diagnosis Acute periapical abscess documented in this encounter Additional Health Concerns Assessment Noted Time PHQ-9 Depression Total Score: 0 02/26/20 24 10:35 AM EDT documented as of this encounter Care Teams Polysomnographic Tech Relationship Specialty Start Date End Date Lucio Arroyo MD [address] [place] [address] PCP - General Internal Medicine 04/03/20 documented as of this encounter
--- OUTSIDE RECORDS SUMMARY | 2025-01-28 14:25 | XMS_ITS | Encounter Summary ---
Author Organization [employer] Address [address] [place] [address] [address] [place] [address] Care Team Providers Care Medical Billing Instructor Name Role Phone Lucio Arroyo MD Primary Care Prov ider Encounter Details Date Type Department Care Team (Latest Contact Info) Description 08/12/2022 Abstract [facility] Dental, Provider, DDS Social History Tobacco Use Types Packs/Day Years Used Date Smoking Tobacco: Never Assessed Comments Unknown Sex and Gender Information Value [...] Description 03/17/2025 11:00 AM EDT Office Visit [facility]ULT [facility] [address] [place] [address] Liyah Cisneros documented as of this encounter Visit Diagnoses Not on filedocumented in this encounter Care Teams Medical Billing Instructor Relationship Specialty Start Date End Date Lucio Arroyo MD [address] [place] [address] PCP - General Internal Medicine 04/03/20 documented as of this encounter
--- OUTSIDE RECORDS SUMMARY | 2025-01-28 14:25 | XMS_ITS | Clinical Summary ---
Author Organization [employer] Address [address] [facility] [address] [place] [address] Care Team Providers Care Creosoting Engineer Name Role Phone Lucio Arroyo MD Primary Care Prov ider Allergies Active Allergy Reactions Criticality Noted Date Comments Oxycodone 06/30/2020 Oxycodone-Acetaminophen 02/17/2023 Medications docusate sodium (Colace) 100 MG capsule Take 1 capsule by mouth if needed at bedtime. 2 Active omeprazole (PriLOSEC) [address] capsule Take 1 capsule (20 mg) by mouth before breakfast. Do not crush or chew. 90 capsule 3 4 Active norelgestromin -ethinyl estradiol (Zafemy) 150-35 MCG/24HR Apply 1 patch each week for 3 weeks, then remove for 1 week. 3 patch 12 4 09/23/20 25 Active ibuprofen 800 MG tabletIndicati ons:Acute periapical abscess TAKE 1 TABLET BY MOUTH EVERY 8 HOURS NEEDED FOR MILD PAIN. 90 tablet 5 Active ibuprofen 800 MG tabletIndicati ons:Acute periapical abscess TAKE 1 TABLET BY MOUTH EVERY 8 HOURS NEEDED FOR MILD PAIN. 90 tablet 4 01/04/20 25 Discontinued Active Problems Problem Noted Date Diagnosed Date Gastroesophageal reflux disease without esophagi tis 08/27/2023 Assessment & Plan (04/20/2024 10:33 AM EDT): Controlled, continue lifestyle modifications Assessment & Plan (08/27/2023 9:36 AM EDT): On omeprazole, symptoms have remained stable, reinforced lifestyle modifications, encourage weight loss. Anxiety 02/13/2023 Assessment & Plan (02/13/2023 12:19 PM EDT): She is undergoing through a lot of stressors at home, she refers is being followed by therapist, no suicidal/homicidal ideas Chronic fatigue 11/07/2022 Assessment & Plan (04/16/2023 9:40 AM EDT): Symptoms improved, related to anxiety and household situations, reviewed blood work results, she has been exercising more frequently also visiting different town with her kids have helped. No suicidal/homicidal ideas. Will follow up in 4-6 months Assessment & Plan (11/07/2022 6:14 PM EST): Will order labs to evaluate for sle/ra, but seems her symtpoms are more related to her anxiety and mood. Multiple joint pain 11/07/2022 Assessment & Plan (04/20/2024 10:34 AM EDT): Pending lumbar xray, follow up pt, continue ibuprofen as needed Assessment & Plan (11/07/2022 3:03 PM EST): Will place order Iron deficiency anemia kathy brian to inadequate dietary iron intake 11/07/2022 Assessment & Plan (04/20/2024 10:34 AM EDT): Labs not done, will follow up results Assessment & Plan (02/13/2023 12:18 PM EDT): Patient denied rectal or profuse vaginal bleeding, will order new hgb/iron levels for guidance of therapy Assessment & Plan (11/07/2022 6:13 PM EST): Will place order for new labs for guidance of therapy, reinforced cereals, vegegetable rich in iron and to increase red meat Other chest pain 11/07/2022 Assessment & Plan (11/07/2022 6:15 PM EST): Refers having mid sternal chest pain that last a few minutes, not associated with shortness of breath, no radiation, symptoms are aypical but will r/o cad and will order a stress test. Vitamin D deficiency 11/07/2022 Encounters Date Type Department Care Team Description 01/28/2025 Orders Only GENERIC EXTERNAL DATA DEPARTMENT Provider, Generic External Data 01/02/[address] [facility] MED & PEDS [address] [place] [address] Lucio Arroyo MD Acute periapical abscess 12/28/2024 10:30 AM EST Office Visit [facility] ADULT DENTAL [address] [place] [address] Yolande Dexter DDS Dental caries (Primary Dx) from Last 3 Months Immunizations Name Administration Dates Next Due Hep B, adult 02/20/2011,09/21/2007,12/24/2006 Influenza injectable quadriv alent IIV4 with preservative 08/11/2018,12/16/2017 Influenza injectable quadriv alent preservative free 11/08/2021 Influenza, Split (incl. mirta fied surface antigen) 09/11/2012 MMR 04/20/2019,02/20/2011 Tdap 02/02/2019,02/20/2011 Social History Tobacco Use Types Packs/Day Years Used Date Smoking Tobacco: Never Passive Smoke Exposure: Never Smokeless Tobacco: Never Tobacco Cessation:Counseling Given: Not Answered Alcohol Use Standard Drinks/Week Comments Never 0 [...] Orientation Straight 09/23/2022 10 :15 AM EDT Last Filed Vital Signs Vital Sign Reading Time Taken Comments Blood Pressure 120/78 12/28/2024 10:53 AM EST Pulse 70 02/19/2023 9:57 AM EDT Temperature 36.8 ??C (98.2 ??F) 02/13/2023 10:21 AM E DT Respiratory Rate 20 02/13/2023 10:21 AM EDT Oxygen Saturation 97% 01/07/2023 10:41 AM EST Inhaled Oxygen Concentration - - Weight 74.4 kg (164 lb) 02/13/2023 10:21 AM EDT Height 157.5 cm (5' 2 ) 02/13/2023 10:21 AM EDT Body Mass Index 30 02/13/2023 10:21 AM EDT Plan of Treatment Upcoming Encounters Date Type Department Care Team (Late st Contact Info) Description 03/17/2025 11:00 AM EDT Office Visit [facility] ADULT DENTAL [address] [place] [address] Liyah Cisneros Health Maintenance Due Date Last Done Comments Family Planning (PISQ) 1996 Mammogram 2021 Cervical Cancer Screening 01/10/2024 HPV/Cotest 01/10/2024 01/10/2023, 11/15/2021 Pap Smear 01/10/2024 01/10/2023, 10/25, 11/08/2021 COVID-19 Vaccine ( season) 2024 Influenza Vaccine (#1) 2024 , 08/11/2018, 12/16/2017, Additional history exists Depression Screening 02/25/2025 02/26/2024, 02/26/20 24 SDOH Screening 02/25/2025 02/26/2024 Dental Oral Exam 03/15/2025 09/13/2024 Dental Prophylaxis 03/15/2025 09/13/2024 Dental X-Ray: Bitewings 09/14/2025 09/13/20 24, 06/03/2024, 02/16/2024 Alcohol/Substance Use Screening 09/23/2025 09/23/2024 Tobacco Screening 12/28/2025 12/28/2024 Dental X-Ray: Full Mouth 09/14/2027 09/13/2024 DTaP/Tdap/Td Vaccines (3 - Td or Tdap) 02/02/2029 02/02/2019, 02/20/2011 Zoster Vaccines (1 of 2) 2031 RSV Patients and Patients Aged 60 years or older (1 - 1-dose 75+ series) 2056 Hepatitis B Vaccines Completed 02/20/2011, 09/21/2007, 12/24/2006 HIV Screening Completed 01/07/2023, 02/22, 03/08/2022 Hepatitis C Screening Completed 01/07/2023, 022 HIB Vaccines Aged Out No longer eligi [...] patient's age to complete this topic Meningococcal Vaccine Aged Out No boris osvaldo eligible based on patient's age to complete this topic Pneumococcal Vaccine: Pediatrics (0 to 5 Years) and At-Risk Patients (6 to 49) Years) Aged Out No longer eligible based on patient's age to complete this topic RSV under 20 months Aged Out No longe r eligible based on patient's age to complete this topic Rotavirus Vaccines Aged Out No longer eligible based on patient's age to complete this topic Procedures Procedure Name Priority Date/Time Associated Diagnosis Comments STREP A NUCLEIC ACID Routine 01/28/2025 9:37 AM EST HCG, TOTAL, QN Routine 01/28/2025 9:36 AM EST COMPREHENSIVE METABOLIC PANEL Routine 01/28/2025 9:36 AM EST CBC WITH AUTO DIFFERENTIAL Routine 01/28/2025 9:36 AM EST CASE PRESENTATION, DETAILED AND EXTENSIVE TREATMENT PLANNING Routine 12/28/2024 10:30 AM EST Dental caries 6 L(V) RESIN-BASED COMPOSITE - 1 SURF, ANTERIOR Routine 12/28/2024 10:30 AM EST Dental caries 28 MO RESIN-BASED COMPOSITE - 2 SURF, POSTERIOR Routine 12/28/2024 10:30 AM EST Dental caries PROPHYLAXIS - ADULT Routine 09/13/2024 1 1:00 AM EDT Dental plaque Dental calculus INTRAORAL - COMPLETE SERIES OF RADIOGRAPHIC IMAGES Routine 09/13/2024 11:00 AM EDT PERIODIC ORAL EVALUATION - ESTABLISHED PATIENT Routine 09/13/2024 11:00 AM EDT Dental plaque Dental calculus Encounter for dental examination THINPREP IMAGING PAP AND HPV MRNA E6/E7, WITH CT/NG, TRICHOMONAS Routine 01/10/2023 2:03 PM EST HEPATITIS C AB W/REFL TO HCV RNA, QN, PCR Routine 01/07/2023 11:11 AM EST Screening examination for venereal disease HIV 1/2 ANTIGEN/ANTIBODY, FOURTH GENERATION W/RFL Routine 01/07/2023 11:11 AM EST Screening examination for venereal disease from Last 3 Months or Most Recently Relevant to Health Maintenance Results * Strep A Nucleic Acid (01/28/2025 9:37 AM EST) IDNOW SERIAL# [id number] [facility] Strep A Nucleic Acid Negative Negative [facility] Comment:All test results mus t be [...] LAB MICROBIOLOGY - GENERAL ORDERABLES Final Result [facility] [address] [place] [address] [phone] * (ABNORMAL) CBC auto differential (01/28/2025 9:36 AM EST) White Blood Count 4.7(L) 4.8 - 10.8 X10*3/uL [facility] Red Blood Count 3.99(L) 4.20 - 5.50 X10*6/uL [facility] Hemoglobin 11.4(L) 12.0 - 16.0 g/dl [facility] Hematocrit 34.9(L) 37.0 - 47.0 % [facility] Mean Corpuscular Volume 87.5 80.0 - 98.0 fL [facility] Mean Corpuscular Hemoglobin 28.6 27.0 - 33.0 pg [facility] Mean Corpuscular HGB Conc 32.7 31.0 - 35.0 g/dl [facility] Red Cell Distribution Width 13.3 11.0 - 16.0 % [facility] Platelet Count 317 160 - 400 X10*3/uL [facility] Mean Platelet Volume 9.7 9.4 - 12.3 fL [facility] Neutrophils Percent Auto 52.9 45 - 73 % [facility] Imm Gran Pct Auto 0.0 0.0 - 0.4 % [facility] Lymphocytes Percent Auto 37.3 20 - 40 % [facility] Monocytes Percent Auto 8.1 2 - 11 % [facility] Eosinophils Percent Auto 1.1 0 - 4 % [facility] Basophils Percent Auto 0.6 0 - 2 % [facility] NRBC Pct Auto 0.0 0.0 - 0.2 /100WBC [facility] Neutrophils Absolute Auto 2.5 2.0 - 8.3 x10*3/uL [facility] Imm Gran Abs Auto 0.00 0.00 - 0.03 X10*3/uL [facility] Lymphocytes Absolute Auto 1.8 1.2 - 4.9 X10*3/uL [facility] Monocytes Absolute Auto 0.4 0.1 - 1.2 X10*3/uL [facility] Eosinophils Absolute Auto 0.1 0.0 - 0.4 X10*3/uL [facility] Basophils Absolute Auto 0.0 0.0 - 0.2 X10*3/uL [facility] NRBC Abs Auto 0.000 0.0 - 0.012 X10*3/uL [facility] 01/28/2025 9:36 AM EST 01/28/2025 9:41 AM EST us Generic External Data Provider LAB BLOOD ORDERAB LES Final Result Performing Organization Address City/State/[facility] Co de Phone Number [facility] [address] [place] [phone] * hCG, Total, Quantitative (01/28/2025 9:36 AM EST) HCG Quantitative <2 mIU/mL [facility] Comment:Weeks post LMP Appr oximate hCG(Last Menstrual Period) Range (mIU/ml)3 - 4 weeks 9 - 1304 - 5 weeks 75 - 2,6005 - 6 weeks 850 - 20,8006 - 7 weeks 4000 - 100,2007 - 12 weeks 11,500 - 289,92811 - 16 weeks 18,300 - 137,46044 - 29 weeks (2nd trimester) 1,400 - 53,86513 - 41 weeks (3rd trimester) 940 - 60,000The Shahid B-hCG assay is used for the early detection ofpregnancy; it cannot be used to diagnose any conditionunrelated to . If a B-hCG level is not supportedby the clinical evidence, results should be confirmed by analternative method (qualitative urine hCG, for example). 01/28/2025 9:36 AM EST 01/28/2025 9:41 AM EST us Generic External Data Provider LAB BLOOD ORDERAB LES Final Result [facility] [address], [place] [phone] * (ABNORMAL) Comprehensive Metabolic Panel (01/28/2025 9:36 AM EST) Sodium 139 135 - 145 mmol/L [facility] Potassium 4.2 3.3 - 5.1 mmol/L [facility] Chloride 104 96 - 108 mmol/L [facility] Carbon Dioxide 30(H) 22 - 29 mmol/L [facility] Anion Gap 9(L) 12 - 20 [facility] Urea Nitrogen (BUN) 13 9 - 16 mg/dL [facility] Creatinine, Serum 0.73 0.5 - 1.4 mg/dL [facility] Creatinine Clr Calc Pharmacy 92.9 [facility] Comment:Provided height and weight: 157.48 cm,73.028 kg.eGFR (calculated from the MDRD study equation) and eCrCl(calculated from the Cockcroft-Gault equation) are based ondifferent parameters and may not yield comparable results.If eCrCl result is absurd, please check patient'sheight/weight. Estimated Glomerular Filt Rate >60 [facility] Comment:Chronic Kidney Disea se: Estimated GFR < 60 mL/min/1.41k0Apycxu Kidney Disease: Estimated GFR < 15 mL/min/1.73m2 Glucose 97 60 - 115 mg/dL [facility] Calcium 9.4 8.4 - 10.2 mg/dL [facility] Bilirubin, Total 0.7 0.0 - 1.0 mg/dL [facility] Aspartate Amino Transferase 24 5 - 31 U/L [facility] Alanine Aminotransferase 30 0 - 31 U/L [facility] Total Protein 7.3 6.5 - 8.0 g/dL [facility] Albumin Level 4.2 3.5 - 5.0 g/dL [facility] Alkaline Phosphatase 45 39 - 117 U/L [facility] 01/28/2025 9:36 AM EST 01/28/2025 9:41 AM EST us Generic External Data Provider LAB BLOOD ORDERAB LES Final Result [facility] [address] [place] [address] [phone] * (ABNORMAL) Thinprep TIS PAP And HPV mRNA E6/E7, CT/NG, TRICH (01/10/2023 2:03 PM EST) Clinical Information: ASCUS HPV POS 10/2021 COLPO NEG 3/ [facility] LMP: NONE GIVEN DDVTECHt Prev. PAP: NONE GIVEN DDVTECHt Prev. BX: Y [facility] SOURCE: None given [facility] Statement Of Adequacy: [facility] Comment: Satisfactory for evaluation. Endocervical/transformation zone component present. Interpretation/Re sult: Negative for intraepithelial lesion or malignancy. DDVTECHt Infection Shift in vaginal belkys suggestive of bacterial vaginosis. DDVTECHt COMMENT: This Pap test has been evaluated with computer assisted technology. DDVTECHt Paperboard Boxes Estimator: Trish [employer] Comment: ALS, CT(ASCP) CT screening location: [address] ??[phone] Review Paperboard Boxes Estimator: DDVTECHt Comment: SXA, CT(ASCP) CT screening location: [address] ??[phone] (Always Message) Que Code [employer]st Comment: EXPLANATORY NOTE: The Pap is a screening test for cervical cancer. It is not a diagnostic test and is subject to false negative and false positive results. It is most reliable when a satisfactory sample, regularly obtained, is submitted with relevant clinical findings and history, and when the Pap result is evaluated along with historic and current clinical information. HPV nRNA E6/E7 Detected(A) Not Detected [facility] Comment: Methodology: Gunner'S Mate-Mediated Amplification This assay detects E6/E7 viral messenger RNA (mRNA) from 14 high-risk HPV types (16,18,31,33,35,39,45,51,52,56,58,59,66,68). Cervical sources are required for HPV testing. If a vaginal source from a patient who has had a total hysterectomy with removal of cervix was submitted, please contact the testing laboratory for alternative testing options. For additional information, please refer to http://[employer]/faq/LOJ818a8 (This link if provided for information/ educational purposes only.) Chlamydia trachomatis RNA, TMA, Urogenital NOT DETECTED NOT DETECTED [facility] Neisseria gonorrhoeae RNA, TMA, Urogenital NOT DETECTED NOT DETECTED [facility] (Always Message) Que [employer] Comment: The analytical performance characteristics of this assay, when used to test SurePath(TM) specimens have been determined by [facility]. The modifications have not been cleared or approved by the FDA. This assay has been validated pursuant to the CLIA regulations and is used for clinical purposes. For additional information, please refer to https://[employer]/faq/QUM563 (This link is being provided for information/ educational purposes only.) Trichomonas vaginalis, QL, TMA, PAP Vial NOT DETECTED NOT DETECTED [facility] Comment: The analytical performance characteristics of this assay have been determined by [facility]. The modifications have not been cleared or approved by the FDA. This assay has been validated pursuant to the CLIA regulations and is used for clinical purposes. For additional information, please refer to http://[employer]/ faq/Trichomonastma (This link is being provided for information/ educational purposes only.) NO COLLECTION DATE RECEIVED. WE HAVE USED THE DATE THE SPECIMEN WAS RECEIVED BY THIS LABORATORY THE COLLECTION DATE. IF THIS IS INCORRECT, PLEASE CONTACT CLIENT SERVICES. PHONE NUMBER: 01/08/2023 8:5 8 AM EST Narrative [facility] - 01/10/2023 2:03 PM EST FASTING: UNKNOWN Jaja Radha [facility] LAB PATHOLOGY ORDERABLES Final Result Performing Organization Address City/[facility] Co de Phone Number [address], [place] [address] [facility] [place] [employer] [address] [place] [address], (Nl2) [place] [address] * Hepatitis C Antibody with Reflex to HCV, RNA, Quantitative, Real-Time PCR (01/07/2023 11:11 AM EST) Pathologist [facility] [place] Hepatitis C Antibody NON-REACT FLY NON-REACT FLY [facility] [place] [facility] Index 0.06 <1.00 [facility] [place] [facility] Comment: HCV antibody was non-reactive. There is no laboratory evidence of HCV infection. In most cases, no further action is required. However, if recent HCV exposure is suspected, a test for HCV RNA (test code 52844) is suggested. For additional information please refer to http://education.[employer]/faq/HMF91a5 (This link is being provided for informational/ educational purposes only.) Blood Venous blood specimen / Unknown 01/07/2023 11:11 AM EST 01/07/2023 11:17 AM EST Jaja Garcia [facility] LAB BLOOD ORDERABLES Ida l Result Performing Organization Address City/[facility]/ZIP Co de Phone Number [address], [place] [address] [facility] [place] [facility] [address] [place] [address], (Nl2) [place] [address] * HIV-1/2 Antigen and Antibodies, Fourth Generation, with Reflexes (01/07/2023 11:11 AM EST) HIV Antigen/Antibody, 4th Generation NON-REAC TIVE NON-REAC TIVE [facility] [place] [facility] Comment: HIV-1 antigen and HIV-1/HIV-2 antibodies were not detected. There is no laboratory evidence of HIV infection. PLEASE NOTE: This information has been disclosed to you from records whose confidentiality may be protected by state law. ??If your state requires such protection, then the state law prohibits you from making any further disclosure of the information without the specific written consent of the person to whom it pertains, or as otherwise permitted by law. A general authorization for the release of medical or other information is NOT sufficient for this purpose. ?? For additional information please refer to http://education.[employer]/faq/QDS028 (This link is being provided for informational/ educational purposes only.) The performance of this assay has not been clinically validated in patients less than 2 years old. Blood Venous blood specimen / Unknown 01/07/2023 11:11 AM EST 01/07/2023 11:17 AM EST Jaja Garcia [facility] LAB BLOOD ORDERABLES Ida l Result [facility] [address] [facility], [place] [address] [facility] [place] [facility] [address] [facility], (Nl2) [place] [address] from Last 3 Months or Most Recently Relevant to Health Maintenance Insurance [facility] C3 DENTAL-[facility] MEDICAID STAND ADULT Care Teams Creosoting Engineer Relationship Specialty Start Date End Date Lucio Arroyo MD [address] [place] [phone] PCP - General Internal Medicine 04/03/20
--- OUTSIDE RECORDS SUMMARY | 2025-01-28 14:25 | XMS_ITS | Encounter Summary ---
Author Organization [employer] Address [address] [place] [address] [address] [place] [address] Care Team Providers Care Manager Channel Name Role Phone Lucio Arroyo MD Primary Care Prov ider Encounter Details Date Type Department Care Team (Latest Contact Info) Description 08/13/2019 Abstract [facility] CONVERSIONS Dental, Provider, DDS Social History Tobacco [...] Description 03/17/2025 11:00 AM EDT Office Visit [facility] ADULT DENTAL [address] [place] [address] Liyah Cisneros documented as of this encounter Visit Diagnoses Not on filedocumented in this encounter Care Teams Manager Channel Relationship Specialty Start Date End Date Lucio Arroyo MD [address] [place] [address] PCP - General Internal Medicine 04/03/20 documented as of this encounter
--- OUTSIDE RECORDS SUMMARY | 2025-01-28 14:25 | XMS_ITS | Encounter Summary ---
Author Organization [employer] Address [address] [place] [address] [address] [place] [address] Care Team Providers Care Regulator Operator Name Role Phone Lucio Arroyo MD Primary Care Prov ider Reason for Visit * Reason Onset Date Comments Appointment 03/17/2023 Brigette Wyatt OB 1980 Patient wants to know if partial is in office please advise. Encounter Details Date Type Department Care Team ([facility] st Contact Info) Description 03/17/2023 Telephone [facility] ADULT DENTAL [address] [place] [address] Dayday Paulson DDS [address] [place] [address] Appointment (Brigette Alexander 1980 Patient wants to know if partial is in office please advise.) Social History Tobacco Use Types Packs/Day Years [...] Recorded In the last 10 days, have ailin navarro been in contact with someone who was confirmed or suspected to have Coronavirus/COVID-19? No / Unsure 03/20/2023 10:28 AM EDT documented as of this encounter Miscellaneous Notes * Telephone Encounter - Claudia Stanley - 03/18/2023 3:51 PM EDT Thank you I reached out to patient. * Telephone Encounter - Claudia Stanley - 03/17/2023 11:54 AM EDT Brigette LONDON 1980 Patient called in and wanted to know if partial is in office please advise. documented in this encounter Plan of Treatment Upcoming Encounters Date Type Department Care Team (Late st Contact Info) Description 03/17/2025 11:00 AM EDT Office Visit [facility] ADULT DENTAL [address] [place] [address] Liyah Cisneros documented as of this encounter Visit Diagnoses Not on filedocumented in this encounter Additional Health Concerns Assessment Noted Time PHQ-9 Depression Total Score: 0 11/07/20 22 12:00 PM EST documented as of this encounter Care Teams Regulator Operator Relationship Specialty Start Date End Date Lucio Arroyo MD [address] [place] [phone] PCP - General Internal Medicine 04/03/20 documented as of this encounter
== END 2025-01-28 13:14 | disposition home or self-care (01) ==
PROVIDERS: Emergency Provider Emergency Medicine; PCP Internal Medicine
DX: N64.59 Other signs and symptoms in breast (principal)
CPT/HCPCS: 36415; 80053; 84702; 85025; 87651; 99283

== ENCOUNTER 2025-08-24 08:44 | Emergency (ER) | payer MEDICAID, SELFPAY ==
--- OUTSIDE RECORDS SUMMARY | 2025-08-22 09:45 | XMS_ITS | Encounter Summary ---
Author Organization [employer] Address [address] [address] [address] [facility] [address] [place] [address] Care Team Providers Care Hotel Room Attendant Name Role Phone Lucio Arroyo MD Primary Care Prov ider Reason for Visit * Reason Comments Acupuncture Encounter Details Date Type Department Care Team ([facility] st Contact Info) Description 08/22/2025 9:45 AM EDT Office Visit [facility] [address] [place] [address] Mary Weber MD [address] [place] [address] Anxiety (Primary Dx); Chronic bilateral low back pain without sciatica Social History Tobacco Use Types Packs/Day Years Used Date Smoking Tobacco: Never Passive Smoke Exposure: Never Smokeless Tobacco: Never Alcohol Use Standard Drinks/Week Comments Never 0 (1 standard drink = 0.6 oz pur e alcohol) Depression Answer Date Recorded Patient Health Questionnaire-9 Score 11 04/05/2025 Patient Health Questionnaire-9 Score 11 04/05/2025 Last PHQ-9: Questionnaire Data Not on file 0 04/05/2025 Housing Stability Answer Date Recorded What is [...] Answer Date Recorded Patient Health Questionnaire-2 Score 3 04/05/2025 Comments No Sex and Gender Information Value Date Recorded Sex Assigned at Female 09/23/2022 10:15 AM EDT Legal Sex Female 10:15 AM EDT Gender Identity Female 09/23/2022 10:15 AM EDT Sexual Orientation Straight 09/23/2022 10 :15 AM EDT documented as of this encounter Progress Notes * Mary Weber MD - 08/22/2025 9:45 AM EDT Subjective Patient ID: Brigette Smith is a 44 y.o. female who presents for Acupuncture. Brigette is here for ongoing acupuncture treatments for stress and back pain. She is feeling very relaxed and pain has improved with treatment. Review of Systems Musculoskeletal: Positive for back pain. Psychiatric/Behavioral: The patient is nervous/anxious. Objective Physical Exam Constitutional: Appearance: Normal appearance. Skin: General: Skin is warm and dry. Neurological: Mental Status: She is alert and oriented to person, place, and time. Assessment/Plan Diagnoses and all orders for this visit: Anxiety Chronic bilateral low back pain without sciatica Written consent obtained for ear acupuncture. Ears prepped with alcohol pad. Five ear points needled bilaterally: Sympathetic, Cui Men, Kidney, Liver and Lung. Treatment duration: 30 minutes. Good hemostasis. Patient tolerated well. Follow up weekly for repeat acupuncture treatments as desired. documented in this encounter Plan of Treatment Upcoming Encounters Date Type Department Care Team ([facility] st Contact Info) Description 09/15/2025 10:30 AM EDT Office Visit [facility] [address] [place] [address] Lucio Arroyo MD [address] [place] [address] documented as of this encounter Visit Diagnoses Diagnosis Anxiety- Primary Anxiety state, unspecified Chronic bilateral low back pain without sciatica documented in this encounter Additional Health Concerns Assessment Noted Time PHQ-9 Depression Total Score: 11 025 2:10 PM EDT documented as of this encounter Care Teams Hotel Room Attendant Relationship Specialty Start Date End Date SawyerLucio Mabry MD [address] [place] [address] PCP - General Internal Medicine 04/03/20 documented as of this encounter
--- NOTE | ~2025-08-24 | XR_ITS ---
EXAMINATION: XR CHEST CLINICAL INFORMATION: chest pain COMPARISON: 03/08/2022 TECHNIQUE: 2 views of the chest were obtained. FINDINGS: The cardiac, hilar, and mediastinal contours are normal. The lungs are clear bilaterally. There is no pneumothorax or pleural effusion. There is no focal osseous or soft tissue abnormality. XR/XR chest 2V IMPRESSION: Normal chest. Electronically signed by: Adama Chu MD 08/24/2025 09:30 AM EDT
[2025-08-24 08:49] VITALS: BP 165/99; PULSE 99; RESP 18; TEMP 36.8; O2SAT 100; BMI 30.6
[2025-08-24 09:01] VITALS: BP 134/99; PULSE 102; RESP 22; TEMP 36.8; O2SAT 100
--- NOTE | 2025-08-24 09:04 | ED.GENADULT ---
HPI - General Adult General Chief complaint: General Medical Stated complaint: Pain in rib cage, sore throat Time Seen by Provider: 08/24/25 08:51 Source: patient and certification technician Mode of arrival: ambulatory Limitations: language barrier History of Present Illness ED Provider: HPI narrative: 44-year-old woman, presenting with sore throat, cough, right-sided ribcage pain, pleurisy, states this has been going on for the past 3 days, nonsmoker nondrinker no fevers or chills reported. No recent surgeries prolonged travel reported. Related Data Previous Rx's ?Medication ?Instructions ?Recorded polyethylene glycol 3350 17 17 g PO BID #510 grams 10/28/21 gram/dose oral powder (Miralax) Allergies Allergy/AdvReac Type Severity Reaction Status Date / Time oxycodone (OXYCODONE) Allergy Unknown DIZZY,SWEAT Verified 08/24/25 08:52 ING Review of Systems Constitutional: Constitutional: Reports as per [facility] Social History Social History Advance Directives: No Advance Directives Information Provided: No Do you have a plan to hurt others: No Plan Physical Exam ED Vital Signs: Vital Signs - 24 hr 08/24/25 08:49 08/24/25 09:01 Temperature 98.3 F 98.2 F Pulse Rate 99 102 H Respiratory Rate 18 22 H Blood Pressure 165/99 H 134/99 H Pulse Oximetry 100 100 Oxygen Delivery Method Room Air Room Air BMI result Body Mass Index 30.6 Const Other: General: ?Appears of stated age ? ?uvula midline, no tonsillar exudates ? Neck: Supple, no LAD ? ?CV: RRR, no obvious murmurs appreciated ? ?Resp: ?No wheezing rales rhonchi no stridor moving air well, tenderness along right lower ribcage ? Abd: ?Bowel sounds are present, no tenderness no rebound no rigidity, negative Guallpa's sign ? ?MSK: FROM, strength 5/5 all extremities ? Skin: Warm, dry, intact, ? ?Neuro: ?Alert and oriented x3, moving upper and lower extremities symmetrically, no obvious facial asymmetry noted, cranial nerves 2-12 intact Medications Administered Discontinued Medications Generic Name Dose Route Start Last Admin Trade Name Freq PRN Reason Stop Dose Admin Ketorolac Tromethamine 15 mg 08/24/25 09:07 08/24/25 09:33 Ketorolac Tromethamine 15 Mg/Ml Vial IM 08/24/25 09:08 15 mg ONCE ONE Administration Medical Decision Making Medical Decision Making [facility] Narrative: 9:09 AM 08/24/2025 (Dr. Silvino Cummings): Consideration for workup as below, we will obtain D-dimer, she has pleuritic pain, she has had episodes of tachycardia that was at bedside, ENT exam otherwise unremarkable, she does have ribcage tenderness, and abdominal exam is benign though I will consider working up for biliary and pancreatic pathology as well Differential Diagnosis Differential Diagnoses: The differential diagnosis associated with the presentation includes (Musculoskeletal pain, PE, biliary pathology, pancreatic pathology, renal colic) Admission/Observation Consideration of admission/observation: Escalation of care including admission/observation considered Lab Data [facility] Lab Attestation statement: I reviewed the patient's lab results. 08/24/25 09:12 08/24/25 09:12 Labs: Lab Results 08/24/25 Range/Units 09:12 WBC 9.3 (4.8-10.8) X10*3/uL RBC 3.63 L (4.20-5.50) X10*6/uL Hgb 10.5 L (12.0-16.0) g/dl Hct 31.2 L (37.0-47.0) % MCV 86.0 (80.0-98.0) fL MCH 28.9 (27.0-33.0) pg MCHC 33.7 (31.0-35.0) g/dl RDW 13.0 (11.0-16.0) % Plt Count 328 (160-400) X10*3/uL MPV 9.5 (9.4-12.3) fL Immature Gran % (Auto) 0.2 (0.0-0.4) % Neut % (Auto) 67.7 (45-73) % Lymph % (Auto) 23.6 (20-40) % Greenwood % (Auto) 7.2 (2-11) % Eos % (Auto) 0.9 (0-4) % Baso % (Auto) 0.4 (0-2) % Lymph # (Auto) 2.2 (1.2-4.9) X10*3/uL [place] # (Auto) 0.7 (0.1-1.2) X10*3/uL Eos # (Auto) 0.1 (0.0-0.4) X10*3/uL Baso # (Auto) 0.0 (0.0-0.2) X10*3/uL Abs Immat Gran (auto) 0.02 (0.00-0.03) X10*3/uL Absolute Neuts (auto) 6.3 (2.0-8.3) x10*3/uL Absolute Nucleated RBC 0.000 (0.0-0.012) X10*3/uL Nucleated RBC % (auto) 0.0 (0.0-0.2) /100WBC D-Dimer High Sensitivty < 150 NG/ML Sodium 142 (135-145) mmol/L Potassium 4.0 (3.3-5.1) mmol/L Chloride 108 (96-108) mmol/L Carbon Dioxide 27 (22-29) mmol/L Anion Gap 11 L (12-20) BUN 11 (9-16) mg/dL Creatinine 0.64 (0.5-1.4) mg/dL Estim Creat Clear Calc 108.0 Estimated GFR > 60 Random Glucose 97 (60-115) mg/dL Calcium 9.2 (8.4-10.2) mg/dL Total Bilirubin 0.3 (0.0-1.0) mg/dL AST 20 (5-31) U/L ALT 19 (0-31) U/L Alkaline Phosphatase 54 (39-117) U/L Total Protein 6.9 (6.5-8.0) g/dL Albumin 4.0 (3.5-5.0) g/dL Lipase 18 (8-78) U/L Independent Interpretation I performed an independent interpretation of an: EKG (88 beats per minute, normal EKG) and Plain X-Ray (My independent chest xray interpretation: Lungs: Lungs are clear bilaterally without evidence of focal consolidation, pleural effusion, or pneumothorax. Cardiac silhouette is unremarkable, no obvious mediastinal widening, no obvious bony abnormalities such as fractures. Impression: Normal chest X-r) Radiology Impression Discussion of test interpretation with radiology: I have reviewed the radiologist's reading. (Negative chest) Tests considered The following testing was considered but not selected: CT angiography chest Discharge Plan Discharge Clinical Impression: Chest pain, precordial Patient Disposition: Home, Self-Care Additional Instructions: You can use ibuprofen 400 mg every 6 hours needed, your pain is likely musculoskeletal, he throat exam is unremarkable, blood work reassuring, EKG reassuring, chest x-ray without any evidence for pneumonia, we will also obtain special blood test to make sure you do not have any blood clots in the lungs, follow up with the PCP any other issues or concerns come back to the ER Prescriptions: No Action polyethylene glycol 3350 [Miralax] 17 gram/dose powder 17 g PO BID Qty: 510 0RF Referrals: Lucio Arroyo MD [Primary Care Provider, Medical] - 2 weeks Clinical Impression: Chest pain, precordial Stand Alone Forms: Work/School Release Print Language: Uzbek
--- NOTE | 2025-08-24 09:06 | ECG_ITS ---
Test Reason : CP Blood Pressure : */* mmHG Vent. Rate : 88 BPM Atrial Rate : 88 BPM P-R Int : 132 ms QRS Dur : 72 ms QT Int : 356 ms P-R-T Axes : 42 48 33 degrees QTcB Int : 430 ms Normal sinus rhythm Normal ECG No previous ECGs available Referred By: Silvino Cummings Electronically Signed By: UMESH CAMPOS
[2025-08-24 09:17] LABS: MANUAL DIFF FLAG NO
[2025-08-24 09:21] LABS: Hematocrit 31.2 % (37.0-47.0); Hemoglobin 10.5 g/dl (12.0-16.0); Imm Gran Abs Auto 0.02 X10*3/uL (0.00-0.03); Imm Gran Pct Auto 0.2 % (0.0-0.4); Lymphocytes Absolute Auto 2.2 X10*3/uL (1.2-4.9); Mean Corpuscular HGB Conc 33.7 g/dl (31.0-35.0); Mean Corpuscular Hemoglobin 28.9 pg (27.0-33.0); Mean Corpuscular Volume 86.0 fL (80.0-98.0); NRBC Abs Auto 0.000 X10*3/uL (0.0-0.012); NRBC Pct Auto 0.0 /100WBC (0.0-0.2); Platelet Count 328 X10*3/uL (160-400); Red Blood Count 3.63 X10*6/uL (4.20-5.50); White Blood Count 9.3 X10*3/uL (4.8-10.8)
[2025-08-24 09:33] LABS: D Dimer High Sensitivity < 150 NG/ML
[2025-08-24 09:36] LABS: Alanine Aminotransferase 19 U/L (0-31); Albumin Level 4.0 g/dL (3.5-5.0); Alkaline Phosphatase 54 U/L (39-117); Anion Gap 11 (12-20); Aspartate Amino Transferase 20 U/L (5-31); Blood Urea Nitrogen 11 mg/dL (9-16); Calcium 9.2 mg/dL (8.4-10.2); Carbon Dioxide 27 mmol/L (22-29); Chloride 108 mmol/L (96-108); Creatinine Clr Calc Pharmacy 108.0; Estimated Glomerular Filt Rate > 60; Lipase 18 U/L (8-78); Potassium 4.0 mmol/L (3.3-5.1); Sodium 142 mmol/L (135-145); Total Protein 6.9 g/dL (6.5-8.0)
[2025-08-24 10:06] VITALS: BP 113/62; PULSE 93; RESP 18; TEMP 36.7; O2SAT 100
[2025-08-24 10:17] VITALS: BP 113/62; PULSE 93; RESP 18; TEMP 36.7; O2SAT 100
--- OUTSIDE RECORDS SUMMARY | 2025-08-24 11:04 | XMS_ITS | Encounter Summary ---
Author Organization [employer] Address [address] [place] [address] Care Team Providers Care Marketing Segment Manager Name Role Phone Lucio Arroyo MD Primary Care Prov ider Encounter Details Date Type Department Care Team (Late Contact Info) Description 01/24/2023 Abstract [facility] [address] [place] [address] Yolande Dexter, DDS [address] [place] [address] Social History Tobacco Use Types Packs/Day Years [...] Encounters Date Type Department Care Team (Late Contact Info) Description 09/15/2025 10:30 AM EDT Office Visit [facility] MED & PEDS [address] [place] [address] Lucio Arroyo MD [address] [place] [address] documented as of this encounter Visit Diagnoses Not on filedocumented in this encounter Additional Health Concerns Assessment Noted Time PHQ-9 Depression Total Score: 0 11/07/20 22 12:00 PM EST documented as of this encounter Care Teams Marketing Segment Manager Relationship Specialty Start Date End Date Lucio Arroyo MD [address] [place] [address] PCP - General Internal Medicine 04/03/20 documented as of this encounter
--- OUTSIDE RECORDS SUMMARY | 2025-08-24 11:04 | XMS_ITS | Encounter Summary ---
Author Organization [employer] Address [address] [place] [address] Care Team Providers Care Portuguese Tutor Name Role Phone Lucio Arroyo MD Primary Care Prov ider Encounter Details Date Type Department Care Team (Late st Contact Info) Description 08/24/2025 Orders Only [facility] External Provider, [facility] Social History Tobacco Use Types Packs/Day Years [...] Care Team (Late st Contact Info) Description 09/15/2025 10:30 AM EDT Office Visit [facility] MED & PEDS [address] [place], [place] [phone] Lucio Arroyo MD [address] [place], [place] [phone] documented as of this encounter Procedures Procedure Name Priority Date/Time Associated Diagnosis Comments XR CHEST 2 VIEWS Routine 08/24/2025 9:20 AM EDT D DIMER HIGH SENSITIVITY Routine 08/24/2025 9:12 AM EDT LIPASE Routine 08/24/2025 9:12 AM EDT COMPREHENSIVE METABOLIC PANEL Routine 08/24/2025 9:12 AM EDT documented in this encounter Results * XR Chest 2 Views (08/24/2025 9:20 AM EDT) Anatomical Region Laterality Modality Chest Radiographic Kelly ging 08/24/2025 9:20 AM EDT Narrative 08/24/2025 9:33 AM EDT [address] [address] XRay Report Signed Patient: Brigette Maria MR# : [id number] : 1980 Acct:[id number] Age/Sex: 44 / F ADM Date: 08/24/25 Loc: .ED Attending Dr: Ordering Physician: Silvino Cummings DO Date of Service: 08/24/25 Procedure(s): XR chest 2V Accession Number(s): [id number] cc: Lucio Arroyo MD; Silvino Cummings DO Reason for Exam: chest pain EXAMINATION: XR CHEST CLINICAL INFORMATION: chest pain COMPARISON: 03/08/2022 TECHNIQUE: 2 views of the chest were obtained. FINDINGS: The cardiac, hilar, and mediastinal contours are normal. The lungs are clear bilaterally. There is no pneumothorax or pleural effusion. There is no focal osseous or soft tissue abnormality. XR/XR chest 2V IMPRESSION: Normal chest. Electronically signed by: Adama Chu MD 08/24/2025 09:30 AM EDT Dictated By: Adama Chu MD Signed By: <Electronically signed by Adama Chu MD in OV> 08/24/25929 DD/ 9 TD/TT: 08/24/25925 Combat Systems Engineer: Procedure Note Donotuseinterpreter, Image - 08/24/[address] [address] XRay Report Signed Patient: Brigette Maria# : [id number] : 1980Acct:[id number] Age/Sex: 44 / FADM Date: 08/24/25 Loc: .ED Attending Dr: Ordering Physician: Silvino Cummings DO Date of Service: 08/24/25 Procedure(s): XR chest 2V Accession Number(s): [id number] cc: Lucio Arroyo MD; Silvino Cummings DO Reason for Exam: chest pain EXAMINATION: XR CHEST CLINICAL INFORMATION: chest pain COMPARISON: 03/08/2022 TECHNIQUE: 2 views of the chest were obtained. FINDINGS: The cardiac, hilar, and mediastinal contours are normal. The lungs are clear bilaterally. There is no pneumothorax or pleural effusion. There is no focal osseous or soft tissue abnormality. XR/XR chest 2V IMPRESSION: Normal chest. Electronically signed by: Adama Chu MD 08/24/2025 09:30 AM EDT RP Dictated By: Adama Chu MD Signed By: <Electronically signed by Adama Chu MD in OV> 08/24/25929 DD/ 9 TD/TT: 08/24/25925 Combat Systems Engineer: [facility] External Provider IMG XR PROCEDURES Final Result * Lipase (08/24/2025 9:12 AM EDT) Lipase 18 8 - 78 U/L [facility] 08/24/2025 9:12 AM EDT 08/24/2025 9:15 AM EDT Generic External Data Provider LAB BLOOD ORDERAB LES Final Result [facility] [address] [place] [phone] * (ABNORMAL) Comprehensive Metabolic Panel (08/24/2025 9:12 AM EDT) Sodium 142 135 - 145 mmol/L [facility] Potassium 4.0 3.3 - 5.1 mmol/L [facility] Chloride 108 96 - 108 mmol/L [facility] Carbon Dioxide 27 22 - 29 mmol/L [facility] Anion Gap 11(L) 12 - 20 [facility] Urea Nitrogen (BUN) 11 9 - 16 mg/dL [facility] Creatinine, Serum 0.64 0.5 - 1.4 mg/dL [facility] Creatinine Clr Calc Pharmacy 108.0 [facility] Comment:Provided height and weight: 157.48 cm,75.9 kg.eGFR (calculated from the MDRD study equation) and eCrCl(calculated from the Cockcroft-Gault equation) are based ondifferent parameters and may not yield comparable results.If eCrCl result is absurd, please check patient'sheight/weight. Estimated Glomerular Filt Rate >60 [facility] Comment:Chronic Kidney Disea se: Estimated GFR < 60 mL/min/[id number] Kidney Disease: Estimated GFR < 15 mL/min/1.73m2 Glucose 97 60 - 115 mg/dL [facility] Calcium 9.2 8.4 - 10.2 mg/dL [facility] Bilirubin, Total 0.3 0.0 - 1.0 mg/dL [facility] Aspartate Amino Transferase 20 5 - 31 U/L [facility] Alanine Aminotransferase 19 0 - 31 U/L [facility] Total Protein 6.9 6.5 - 8.0 g/dL [facility] Albumin Level 4.0 3.5 - 5.0 g/dL [facility] Alkaline Phosphatase 54 39 - 117 U/L [facility] 08/24/2025 9:12 AM EDT 08/24/2025 9:15 AM EDT us Generic External Data Provider LAB BLOOD ORDERAB LES Final Result Performing Organization Address [facility] de Phone Number [facility] [address] [place] [phone] * D Dimer High Sensitivity (08/24/2025 9:12 AM EDT) D Dimer High Sensitivity <150 NG/ML [facility] Comment:D-DIMER HS REFERENCE RANGENote: Our assay reports D-Dimer Units (D- DU).The cut-off value for venous thromboembolic (VTE) disease is230 ng/mL. This value has a very high negative predictivevalue when the patient has a low to moderate clinicalprobability of VTE.The upper limit of normal is 243 ng/mL. 08/24/2025 9:12 AM EDT 08/24/2025 9:15 AM EDT us Generic External Data Provider LAB BLOOD ORDERAB LES Final Result Performing Organization Address [facility] Co de Phone Number [facility] [address] [place] [phone] documented in this encounter Visit Diagnoses Not on filedocumented in this encounter Additional Health Concerns Assessment Noted Time PHQ-9 Depression Total Score: 11 025 2:10 PM EDT documented as of this encounter Care Teams Portuguese Tutor Relationship Specialty Start Date End Date Lucio Arroyo MD [address] [place] [address] PCP - General Internal Medicine 04/03/20 documented as of this encounter
--- OUTSIDE RECORDS SUMMARY | 2025-08-24 11:04 | XMS_ITS | Encounter Summary ---
Author Organization [employer] [facility] Address [address] [place] [address] 7 [place] [address] Care Team Providers Care Tobacco Prizer Name Role Phone Lucio Arroyo MD Primary Care Prov ider Encounter Details Date Type Department Care Team (Latest Contact Info) Description 08/13/2019 Abstract [facility] CONVERSIONS Dental, Provider, DDS Social History Tobacco [...] Description 09/15/2025 10:30 AM EDT Office Visit [facility] MED & PEDS [address] [place] [address] Lucio Arroyo MD [address] [place] [address] documented as of this encounter Visit Diagnoses Not on filedocumented in this encounter Care Teams Tobacco Prizer Relationship Specialty Start Date End Date Lucio Arroyo MD [address] [place] [address] PCP - General Internal Medicine 04/03/20 documented as of this encounter
--- OUTSIDE RECORDS SUMMARY | 2025-08-24 11:04 | XMS_ITS | Encounter Summary ---
Author Organization [employer] Address [address] [facility] 7 [place] [address] Care Team Providers Care Vegetable Canner Name Role Phone Lucio Arroyo MD Primary Care Prov ider Reason for Visit * Reason Comments Med Refill Encounter Details Date Type Department Care Team ([facility] Contact Info) Description 10/10/2024 Refill [facility] MED & PEDS [address] [place], [place] [phone] Lucio Arroyo MD [address] [place] [address] Acute periapical abscess Social History Tobacco Use [...] Upcoming Encounters Date Type Department Care Team ([facility] st Contact Info) Description 09/15/2025 10:30 AM EDT Office Visit [facility] [address] [place] [address] Lucio Arroyo MD [address] [place] [address] documented as of this encounter Visit Diagnoses Diagnosis Acute periapical abscess documented in this encounter Additional Health Concerns Assessment Noted Time PHQ-9 Depression Total Score: 0 02/26/20 24 10:35 AM EDT documented as of this encounter Care Teams Vegetable Canner Relationship Specialty Start Date End Date Lucio Arroyo MD [address] [place] [address] PCP - General Internal Medicine 04/03/20 documented as of this encounter
--- OUTSIDE RECORDS SUMMARY | 2025-08-24 11:04 | XMS_ITS | Clinical Summary ---
Author Organization [address] Address [address] [place] [address] Phone Care Team Providers Care Asphalt Paving Supervisor Name Role Phone Unavailable Primary Care Provider Unavailabl e Surgical History Surgery Date Site/Laterality Comments CERVICAL BIOPSY W/ LOOP ELECTRODE EXCISION PROCEDURE: CA CONIZATION CERVIX W/WO D&C RPR ELTRD EXC; [...] 12/08/2023 1:09 PM EST Plan of Treatment Upcoming Encounters Date Type Department Care Team (Late st Contact Info) Description 12/01/2025 10:00 AM EST Office Visit Obstetrics & Gynecology - [facility] [address] [place] [phone] Devi Matute, [facility] [address] [place] [phone] Health Maintenance Due Date Last Done Comments Breast Cancer Screening 1981 Hepatitis B Vaccines (1 of 3 - 19+ 3-dose series) 2000 HPV Vaccines (1 - 3-dose SCD M series) 2008 Cervical Cancer Screening: P ap Smear 09/28/2022 09/28/2021, 02/16/2018, 02/16/2018 HIV Screening 10/22/2022 Hepatitis C Screening 10/22/2022 Social Influencers of Health Screening 10/22/2022 Depression Screening 11/24/2024 COVID-19 Vaccine (1 - 2023-2 5 season) 2025 Influenza Vaccine (#1) 2025 DTaP,Tdap,and Td Vaccines (2 - Td or Tdap) 02/02/2029 02/02/2019 RSV Immunization Adult Patients (1 - 1-dose 75+ series) 2056 HIB Vaccines Aged Out No longer eligi [...] age to complete this topic Meningococcal B Vaccine Aged Out No l onger eligible based on patient's age to complete this topic Pneumococcal Vaccine: Pediatrics (0 to 5 Years) and At-Risk Patients (6 to 49 Years) Aged Out No longer eligible b [...] RESULTING AGENCY - 10/17/2021 12:40 PM EST [id number] THINPREP PAP, IMAGED: NEGATIVE FOR SQUAMOUS INTRAEPITHELIAL [...] HIGH RISK HPV ASSAY: HIGH RISK HPV: POSITIVE (SEROTYPES 16,18,31,33,35,39,45,51,52,56,58,59,66,68) RESULTS OF APTIMA HPV 16 AND 18/45 GENOTYPE ASSAY: HPV 16: NEGATIVE HPV 18/45: POSITIVE COMPLETED ON 2021-10-04 ADEQUACY: SATISFACTORY ENDOCERVICAL/TRANSFORMATION ZONE COMPONENT PRESENT. SOURCE: THINPREP PAP HPV ANY DX: REFLEX 16 AND 18, CERVICAL, IMAGED CLINICAL INFORMATION: HPV ANY DIAGNOSIS. HORMONES, POS HG POSITIVE, Z12.4 us Joao De Souza MD LAB CYTOLOGY ORDERABLES Final Result HISTORICAL TESTING LAB RESULTING AGENCY from Last 3 Months or Most Recently Relevant to Health Maintenance Insurance MEDICAID - [place]
--- OUTSIDE RECORDS SUMMARY | 2025-08-24 11:04 | XMS_ITS | Encounter Summary ---
Author Organization [employer] Address [address] [place] [address] Care Team Providers Care Physical Therapist Clinic Director Name Role Phone Lucio Arroyo MD Primary Care Prov ider Encounter Details Date Type Department Care Team (Latest Contact Info) Description 08/22/2025 Travel Social History Tobacco Use Types Packs/Day Years [...] Description 09/15/2025 10:30 AM EDT Office Visit [facility] MED & PEDS [address] [place] [address] Lucio Arroyo MD [address] [place] [address] documented as of this encounter Visit Diagnoses Not on filedocumented in this encounter Additional Health Concerns Assessment Noted Time PHQ-9 Depression Total Score: 11 025 2:10 PM EDT documented as of this encounter Care Teams Physical Therapist Clinic Director Relationship Specialty Start Date End Date Lucio Arroyo MD [address] [place] [address] PCP - General Internal Medicine 04/03/20 documented as of this encounter
--- OUTSIDE RECORDS SUMMARY | 2025-08-24 11:04 | XMS_ITS | Encounter Summary ---
Author Organization [employer] Address [address] [facility] [address] [place] [address] Care Team Providers Care Source Inspector Name Role Phone Lucio Arroyo MD Primary Care Prov ider Reason for Visit * Reason Comments Med Refill Encounter Details Date Type Department Care Team ([facility] st Contact Info) Description 06/20/2023 Refill [facility] [address] [place] [address] Yolande Dexter DDS [address] [place] [address] Acute periapical abscess Social History Tobacco Use [...] Description 09/15/2025 10:30 AM EDT Office Visit [facility] [address] [place] [address] Lucio Arroyo MD [address] [place] [address] documented as of this encounter Visit Diagnoses Diagnosis Acute periapical abscess documented in this encounter Additional Health Concerns Assessment Noted Time PHQ-9 Depression Total Score: 0 11/07/20 22 12:00 PM EST documented as of this encounter Care Teams Source Inspector Relationship Specialty Start Date End Date Lucio Arroyo MD [address] [place] [address] PCP - General Internal Medicine 04/03/20 documented as of this encounter
--- OUTSIDE RECORDS SUMMARY | 2025-08-24 11:04 | XMS_ITS | Encounter Summary ---
Author Organization [facility] Address [address] [place] [address] [address] [place] [address] Care Team Providers Care Market Research Interviewer Name Role Phone Lucio Arroyo MD Primary Care Prov ider Encounter Details Date Type Department Care Team (Latest Contact Info) Description 08/12/2022 Abstract [facility] Dental, Provider, DDS Social History Tobacco [...] Description 09/15/2025 10:30 AM EDT Office Visit [facility] [address] [place] [address] Lucio Arroyo MD [address] [place] [address] documented as of this encounter Visit Diagnoses Not on filedocumented in this encounter Care Teams Market Research Interviewer Relationship Specialty Start Date End Date Lucio Arroyo MD [address] [place] [address] PCP - General Internal Medicine 04/03/20 documented as of this encounter
--- OUTSIDE RECORDS SUMMARY | 2025-08-24 11:04 | XMS_ITS | Encounter Summary ---
Author Organization [employer] Address [address] [place] [address] Care Team Providers Care Talcer Name Role Phone Lucio Arroyo MD Primary Care Prov ider Reason for Visit * Reason Onset Date Comments Appointment 03/17/2023 Brigette Wyatt OB 1980 Patient wants to know if partial is in office please advise. Encounter Details Date Type Department Care Team ([facility] [address] Contact Info) Description 03/17/2023 Telephone [facility] [address] [place] [address] Dayday Paulson DDS [address] [place] [address] Appointment (Brigette Alexander 1980 Patient wants to [...] Miscellaneous Notes * Telephone Encounter - Claudia Jaden - 03/18/2023 3:51 PM EDT Thank you I reached out to patient. * Telephone Encounter - Claudia Jaden - 03/17/2023 11:54 AM EDT Brigette Alexanderrashaun [place] 1980 Patient called in and wanted to know if partial is in office please advise. documented in this encounter Plan of Treatment Upcoming Encounters Date Type Department Care Team (Late st Contact Info) Description 09/15/2025 10:30 AM EDT Office Visit [facility] [address] [place] [address] Lucio Arroyo MD [address] [place] [address] documented as of this encounter Visit Diagnoses Not on filedocumented in this encounter Additional Health Concerns Assessment Noted Time PHQ-9 Depression Total Score: 0 11/07/20 22 12:00 PM EST documented as of this encounter Care Teams Talcer Relationship Specialty Start Date End Date Lucio Arroyo MD [address] [place] [address] PCP - General Internal Medicine 04/03/20 documented as of this encounter
--- OUTSIDE RECORDS SUMMARY | 2025-08-24 11:04 | XMS_ITS | Clinical Summary ---
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 docusate sodium (Colace) 100 MG capsule Take 1 capsule by mouth if needed at bedtime. 07/11/20 22 Active omeprazole (PriLOSEC) [address] capsule Take 1 capsule (20 mg) by mouth before breakfast. Do not crush or chew. 90 capsule 3 09/23/20 24 Active norelgestromin -ethinyl estradiol (Zafemy) 150-35 MCG/24HR Apply 1 patch each week for 3 weeks, then remove for 1 week. 3 patch 12 09/23/20 24 025 Active topiramate (Topamax) 50 MG tablet Take 1 tablet (50 mg) by mouth Once per day. 60 tablet 2 05/10/20 25 Active phentermine 15 MG capsule TAKE 1 CAPSULE (15 MG) BY MOUTH BEFORE BREAKFAST 30 capsule 08/05/20 25 025 Active ibuprofen 800 MG tabletIndicati ons:Acute periapical abscess TAKE 1 TABLET BY MOUTH EVERY 8 HOURS NEEDED FOR MILD PAIN. 90 tablet 08/05/20 25 Active phentermine 15 MG capsule Take 1 capsule (15 mg) by mouth before breakfast. 30 capsule 05/10/20 25 025 Discontinued ibuprofen 800 MG tabletIndicati ons:Acute periapical abscess TAKE 1 TABLET BY MOUTH EVERY 8 HOURS NEEDED FOR MILD PAIN. 90 tablet 06/08/20 25 025 Discontinued Active Problems Problem Noted Date Diagnosed Date Class 1 obesity due to exces s calories without serious comorbidity with body mass index (BMI) of 30.0 to 30.9 in adult 05/10/2025 Assessment & Plan (05/10/2025 1:26 PM EDT): Will start phentermine and topamax, risk vs benefits discussed, follow up in 3 months Current moderate episode of major depressive disorder without prior episode ([facility]) 04/13/2025 Assessment & Plan (04/13/2025 7:20 PM EDT): No suicidal/homicidal ideas, will refer to . Will follow up in 1 month to discuss if interested in starting treatment Chronic bilateral low back pain without sciatica 04/13/2025 Assessment & Plan (04/13/2025 7:21 PM EDT): No recent traumatic event, will order a lumbar xray, will discuss treatment options on next appointment Gastroesophageal reflux disease without esophagi tis 08/27/2023 [...] Encounters Date Type Department Care Team Description 08/24/2025 Orders Only [facility] External Provider, [facility] 08/22/2025 9:45 AM EDT Office Visit [facility] MEDICINE [address] [place] [address] Mary Weber MD Anxiety (Primary Dx); Chronic bilateral low back pain without sciatica 08/22/2025 Travel 08/18/2025 9:15 AM EDT Office Visit [address] [address] Mary Weber MD Anxiety (Primary Dx); Chronic bilateral low back pain without sciatica 08/18/2025 Travel 08/15/2025 Telephone [facility] [address] [place] [address] Lucio Arroyo MD chart prep 08/08/2025 9:15 AM EDT Office Visit [address] [address] Mary Weber MD Anxiety (Primary Dx); Chronic bilateral low back pain without sciatica 08/08/2025 Travel 08/04/2025 9:15 AM EDT Office Visit [address] [address] Mary Weber MD Anxiety (Primary Dx); Chronic bilateral low back pain without sciatica 08/04/2025 Travel 08/02/2025 9:00 AM EDT Office Visit [address] [address] Mary Weber MD Anxiety (Primary Dx); Chronic bilateral low back pain without sciatica 08/02/2025 Refill [facility] [address] [place] [address] Lucio Arroyo MD Acute periapical abscess 08/02/2025 Travel 08/01/2025 9:30 AM EDT Office Visit [address] [address] Mary Weber MD Anxiety (Primary Dx); Chronic bilateral low back pain without sciatica 08/01/2025 Travel 06/09/2025 10:00 AM EDT Office Visit [address] [address] Mary Weber MD Anxiety (Primary Dx); Chronic bilateral low back pain without sciatica 06/09/2025 9:00 AM EDT Office Visit [facility] ADULT DENTAL [address] [place] [address] MiguelConsuelo king 06/09/2025 Travel 06/07/2025 Refill [facility] MED & PEDS [address] [phone] Lucio Arroyo MD Acute periapical abscess from Last 3 Months Immunizations Immunization Administration Dates Next Due Hep B, adult [...] Sign Reading Time Taken Comments Blood Pressure 120/72 06/09/2025 9:32 AM EDT Pulse 88 06/09/2025 9:32 AM EDT Temperature 36.8 C (98.2 F) 02/13/2023 10:21 AM EDT Respiratory Rate 20 02/13/2023 10:21 AM EDT [...] Description 09/15/2025 10:30 AM EDT Office Visit [facility] [address] [place] [address] Lucio Arroyo MD [address] [place] [address] Health Maintenance Due Date Last Done Comments Disability Screening 1980 Family Planning (PISQ) 1996 HPV Vaccines (1 - 3-dose series) 1996 Mammogram 2021 Cervical Cancer Screening 01/10/2024 HPV/Cotest 01/10/2024 01/10/2023, 11/15/2021 Pap Smear 01/10/2024 01/10/2023, 10/25, 11/08/2021 SDOH Screening 02/25/2025 02/26/2024 COVID-19 Vaccine ( season) 2025 Influenza Vaccine (#1) 2025 , 08/11/2018, 12/16/2017, Additional history exists Dental X-Ray: Bitewings 09/14/2025 09/13/20 24, 06/03/2024, 02/16/2024 Alcohol/Substance Use Screening 09/23/2025 09/23/2024 Depression Monitoring 10/06/2025 04/05/2025, 025 Dental Oral Exam 12/11/2025 06/09/2025, 09/13/2024 Dental Prophylaxis 12/11/2025 06/09/2025, 09/13/2024 Tobacco Screening 06/09/2026 06/09/2025 Dental X-Ray: Full Mouth 09/14/2027 09/13/2024 Lipid Panel 02/14/2028 02/13/2023, 11/07/2022 DTaP/Tdap/Td Vaccines (3 - Td or Tdap) [...] Years) and At-Risk Patients (6 to 49) Years Aged Out No longer eligible based on patient's age to complete this topic RSV under 20 months Aged Out No longe r eligible based on patient's age to complete this topic Rotavirus Vaccines Aged Out No longer eligible based on patient's age to complete this topic Procedures Procedure Name Priority Date/Time Associated Diagnosis Comments XR CHEST 2 VIEWS Routine 08/24/2025 9:20 AM EDT LIPASE Routine 08/24/2025 9:12 AM EDT COMPREHENSIVE METABOLIC PANEL Routine 08/24/2025 9:12 AM EDT D DIMER HIGH SENSITIVITY Routine 08/24/2025 9:12 AM EDT CBC WITH AUTO DIFFERENTIAL Routine 08/24/2025 9:12 AM EDT PERIODIC ORAL EVALUATION - ESTABLISHED PATIENT Routine 06/09/2025 9:00 AM EDT CASE PRESENTATION, DETAILED AND EXTENSIVE TREATMENT PLANNING Routine 06/09/2025 9:00 AM EDT PROPHYLAXIS - ADULT Routine 06/09/2025 9 :00 AM EDT INTRAORAL - COMPLETE SERIES OF RADIOGRAPHIC IMAGES Routine 09/13/2024 11:00 AM EDT LIPID PANEL, STANDARD Routine 02/13/2023 10:47 AM EDT Iron deficiency anemia secondary to inadequate dietary iron intake THINPREP IMAGING PAP AND HPV MRNA E6/E7, WITH CT/NG, TRICHOMONAS Routine 01/10/2023 2:03 PM EST HEPATITIS C AB W/REFL TO HCV RNA, QN, PCR Routine 01/07/2023 11:11 AM EST Screening examination for venereal disease HIV 1/2 ANTIGEN/ANTIBODY, FOURTH GENERATION W/RFL Routine 01/07/2023 11:11 AM EST Screening examination for venereal disease from Last 3 Months or Most Recently Relevant to Health Maintenance Results * XR Chest 2 Views (08/24/2025 9:20 AM EDT) Anatomical Region Laterality Modality Chest Radiographic Kelly ging 08/24/2025 9:20 AM EDT Narrative 08/24/2025 9:33 AM EDT [address] [address] XRay Report Signed Patient: Brigette Maria MR# : [id number] : 1980 Acct:[id number] Age/Sex: 44 / F ADM Date: 08/24/25 Loc: HO.ED Attending Dr: Ordering Physician: Silvino Cummings DO Date of Service: 08/24/25 Procedure(s): XR chest 2V Accession Number(s): [id number] cc: Lucio Arroyo MD; Silvino Cummings DO [...] in OV> 08/24/25929 DD/ 9 TD/TT: 08/24/25925 Mattress Maker: Procedure Note Donotdavisinterpreter, Image - 08/24/2025 [place] [address] XRay Report Signed Patient: Brigette Maria# : [id number] : 1980Acct:[id number] Age/Sex: 44 / FADM Date: 08/24/25 Loc: .ED Attending Dr: Ordering Physician: Silvino Cummings DO Date of Service: 08/24/25 Procedure(s): XR chest 2V Accession Number(s): [id number] cc: Lucio Arroyo MD; Silvino Cummings DO [...] in OV> 08/24/25929 DD/ 9 TD/TT: 08/24/25925 Mattress Maker: [facility] External Provider IMG XR PROCEDURES Final Result * D Dimer High Sensitivity (08/24/2025 9:12 AM EDT) [facility] D Dimer High Sensitivity <150 NG/ML [facility] Comment:D-DIMER HS REFERENCE RANGENote: Our [...] Provider LAB BLOOD ORDERAB LES Final Result [facility] [address] [place] [phone] * (ABNORMAL) CBC auto differential (08/24/2025 9:12 AM EDT) Pathologist [facility] White Blood Count 9.3 4.8 - 10.8 X10*3/uL [facility] Red Blood Count 3.63(L) 4.20 - 5.50 X10*6/uL [facility] Hemoglobin 10.5(L) 12.0 - 16.0 g/dl [facility] Hematocrit 31.2(L) 37.0 - 47.0 % [facility] Mean Corpuscular Volume 86.0 80.0 - 98.0 fL [facility] Mean Corpuscular Hemoglobin 28.9 27.0 - 33.0 pg [facility] Mean Corpuscular HGB Conc 33.7 31.0 - 35.0 g/dl [facility] Red Cell Distribution Width 13.0 11.0 - 16.0 % [facility] Platelet Count 328 160 - 400 X10*3/uL [facility] Mean Platelet Volume 9.5 9.4 - 12.3 fL [facility] Neutrophils Percent Auto 67.7 45 - 73 % [facility] Imm Gran Pct Auto 0.2 0.0 - 0.4 % [facility] Lymphocytes Percent Auto 23.6 20 - 40 % [facility] Monocytes Percent Auto 7.2 2 - 11 % [facility] Eosinophils Percent Auto 0.9 0 - 4 % [facility] Basophils Percent Auto 0.4 0 - 2 % [facility] NRBC Pct Auto 0.0 0.0 - 0.2 /100WBC [facility] Neutrophils Absolute Auto 6.3 2.0 - 8.3 x10*3/uL [facility] Imm Gran Abs Auto 0.02 0.00 - 0.03 X10*3/uL [facility] Lymphocytes Absolute Auto 2.2 1.2 - 4.9 X10*3/uL [facility] Monocytes Absolute Auto 0.7 0.1 - 1.2 X10*3/uL [facility] Eosinophils Absolute Auto 0.1 0.0 - 0.4 X10*3/uL [facility] Basophils Absolute Auto 0.0 0.0 - 0.2 X10*3/uL [facility] NRBC Abs Auto 0.000 0.0 - 0.012 X10*3/uL [facility] 08/24/2025 9:12 AM EDT 08/24/2025 9:15 AM EDT us Generic External Data Provider LAB BLOOD ORDERAB LES Final Result [facility] [address] [place] [address] [phone] * Lipase (08/24/2025 9:12 AM EDT) Lipase 18 8 - 78 U/L [facility] 08/24/2025 9:12 AM EDT 08/24/2025 9:15 AM EDT us Generic External Data Provider LAB BLOOD ORDERAB LES Final Result Performing Organization Address [facility]/ZIP Co de Phone Number [facility] [address] [place] [phone] [phone] * (ABNORMAL) Comprehensive Metabolic Panel (08/24/2025 9:12 AM EDT) Sodium 142 135 - 145 mmol/L [facility] Potassium 4.0 3.3 - 5.1 mmol/L [facility] Chloride 108 96 - 108 mmol/L [facility] Carbon Dioxide 27 22 - 29 mmol/L [facility] Anion Gap 11(L) 12 - 20 [facility] Urea Nitrogen (BUN) 11 9 - 16 mg/dL [facility] Creatinine, Serum 0.64 0.5 - 1.4 mg/dL [facility] Creatinine Clr Calc Pharmacy 108.0 [facility] Comment:Provided height and weight: 157.48 cm,75.9 kg.eGFR (calculated from the MDRD study equation) and eCrCl(calculated from the Cockcroft-Gault equation) are based ondifferent parameters and may not yield comparable results.If eCrCl result is absurd, please check patient'sheight/weight. Estimated Glomerular Filt Rate >60 [facility] Comment:Chronic Kidney Disea se: Estimated GFR < 60 mL/min/1.17x3Vzyqsv Kidney Disease: Estimated GFR < 15 mL/min/1.73m2 Glucose 97 60 - 115 mg/dL [facility] Calcium 9.2 8.4 - 10.2 mg/dL [facility] Bilirubin, Total 0.3 0.0 - 1.0 mg/dL [facility] Aspartate Amino Transferase 20 5 - 31 U/L [facility] Alanine Aminotransferase 19 0 - 31 U/L [facility] Total Protein 6.9 6.5 - 8.0 g/dL [facility] Albumin Level 4.0 3.5 - 5.0 g/dL [facility] Alkaline Phosphatase 54 39 - 117 U/L [facility] 08/24/2025 9:12 AM EDT 08/24/2025 9:15 AM EDT us Generic External Data Provider LAB BLOOD ORDERAB LES Final Result [facility] [address] [place] [phone] * Lipid Panel, Standard (02/13/2023 10:47 AM EDT) Cholesterol, Total 161 <200 mg/dL [facility] HDL Cholesterol 58 > OR = 50 mg/dL [facility] Triglycerides 117 <150 mg/dL [facility] LDL Cholesterol 82 mg/dL (calc) [facility] Comment: Reference range: <100 Desirable range <100 mg/dL for primary prevention; <70 mg/dL for patients with CHD or diabetic patients with > or = 2 CHD risk factors. LDL-C is now calculated using the Shala calculation, which is a validated novel method providing better accuracy than the Friedewald equation in the estimation of LDL-C. Hernesto GOODRICH et al. FARHAN. 2013;310(19): 6416-2555 (http://education.Twitmusic/faq/GHV495) Chol/HDLC Ratio 2.8 <5.0 (calc) [facility] Non-HDL Cholesterol 103 <130 mg/dL (calc) [facility] Comment: For patients with diabetes plus 1 major ASCVD risk factor, treating to a non-HDL-C goal of <100 mg/dL (LDL-C of <70 mg/dL) is considered a therapeutic option. Blood Venous blood specimen / Unknown 02/13/2023 10:47 AM EDT 02/13/2023 10:49 AM EDT Narrative [facility] - 02/14/2023 5:07 AM EDT FASTING:YES FASTING: YES Lucio Vivar MD LAB BLOOD ORDERABL ES Final Result [facility] [address] [facility], [place] [address] [facility] [address] [place] [address] * (ABNORMAL) Thinprep TIS PAP And HPV mRNA E6/E7, CT/NG, TRICH (01/10/2023 2:03 PM EST) Clinical Information: ASCUS HPV POS 10/2021 COLPO NEG 3/ [facility] LMP: NONE GIVEN [facility] Prev. PAP: NONE GIVEN [facility] Prev. BX: Y [facility] SOURCE: None given [facility] Statement Of Adequacy: [facility] Comment: Satisfactory for evaluation. Endocervical/transformation zone component present. Interpretation/Re sult: Negative for intraepithelial lesion or malignancy. [place] Infection Shift in vaginal belkys suggestive of bacterial vaginosis. [facility] COMMENT: This Pap test has been evaluated with computer assisted technology. [facility] Field Sales Agent: Trish Proterrot Comment: ALS, CT(ASCP) CT screening location: [place] [address] Review Field Sales Agent: [place] Comment: SXA, CT(ASCP) CT screening location: [place] [address] (Always Message) [facility] st [employer] Comment: EXPLANATORY NOTE: The Pap is a [...] information. HPV nRNA E6/E7 Detected(A) Not Detected [facility] Comment: Methodology: Water Pollution Control Technician-Mediated Amplification This assay detects E6/E7 viral messenger RNA (mRNA) from 14 high-risk HPV types (16,18,31,33,35,39,45,51,52,56,58,59,66,68). Cervical sources are required for HPV testing. If a vaginal source from a patient who has had a total hysterectomy with removal of cervix was submitted, please contact the testing laboratory for alternative testing options. For additional information, please refer to http://WorkHound.[facility]/faq/BAR899v0 (This link if provided for information/ educational purposes only.) Chlamydia trachomatis RNA, TMA, Urogenital NOT DETECTED NOT DETECTED [facility] Neisseria gonorrhoeae RNA, TMA, Urogenital NOT DETECTED NOT DETECTED [facility] (Always Message) [facility] [employer] Comment: The analytical performance characteristics of this assay, when used to test SurePath(TM) specimens have been determined by [facility]. The modifications have not been cleared or approved by the FDA. This assay has been validated pursuant to the CLIA regulations and is used for clinical purposes. For additional information, please refer to https://WorkHound.M [employer].Similar Pages/faq/RUI738 (This link is being provided for information/ educational purposes only.) Trichomonas vaginalis, QL, TMA, PAP Vial NOT DETECTED NOT DETECTED [facility] Comment: The analytical performance characteristics of this assay have been determined by [facility]. The modifications have not been cleared or approved by the FDA. This assay has been validated pursuant to the CLIA regulations and is used for clinical purposes. For additional information, please refer to http://WorkHound.[facility]/ faq/Trichomonastma (This link is being provided for information/ educational purposes only.) NO COLLECTION DATE RECEIVED. WE HAVE USED THE DATE THE SPECIMEN WAS RECEIVED BY THIS LABORATORY THE COLLECTION DATE. IF THIS IS INCORRECT, PLEASE CONTACT CLIENT SERVICES. PHONE NUMBER: 01/08/2023 8:5 8 AM EST Narrative [facility] - 01/10/2023 2:03 PM EST FASTING: UNKNOWN Jaja Radha [facility] PATHOLOGY ORDERABLES Final Result Performing Organization Address City/[facility] Co de Phone Number [address], [place] [address] [facility] [address] [place] [address], ([address]) [place] [address] * Hepatitis C Antibody with Reflex to HCV, RNA, Quantitative, Real-Time PCR (01/07/2023 11:11 AM EST) Pathologist [facility] Hepatitis C Antibody NON-REACT FLY NON-REACT FLY [facility] Index 0.06 <1.00 [facility] Comment: HCV antibody was non-reactive. There is no laboratory evidence of HCV infection. In most cases, no further action is required. However, if recent HCV exposure is suspected, a test for HCV RNA (test code 14720) is suggested. For additional information please refer to http://education.[facility]/faq/OSY25v9 (This link is being provided for informational/ educational purposes only.) Blood Venous blood specimen / Unknown 01/07/2023 11:11 AM EST 01/07/2023 11:17 AM EST Jaja Garcia [facility] BLOOD ORDERABLES Ida l Result Performing Organization Address City/[facility]/ZIP Co de Phone Number [address], [place] [address] [facility] [address] [place] [address], ([address]) [place] [address] * HIV-1/2 Antigen and Antibodies, Fourth Generation, with Reflexes (01/07/2023 11:11 AM EST) HIV Antigen/Antibody, 4th Generation NON-REAC TIVE NON-REAC TIVE [facility] Comment: HIV-1 antigen and HIV-1/HIV-2 antibodies were not detected. There is no laboratory evidence of HIV infection. PLEASE NOTE: This information has been disclosed to you from records whose confidentiality may be protected by state law. If your state requires such protection, then the state law prohibits you from making any further disclosure of the information without the specific written consent of the person to whom it pertains, or as otherwise permitted by law. A general authorization for the release of medical or other information is NOT sufficient for this purpose. For additional information please refer to http://education.[facility]/faq/VQP346 (This link is being provided for informational/ educational purposes only.) The performance of this assay has not been clinically validated in patients less than 2 years old. 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
== END 2025-08-24 10:20 | disposition home or self-care (01) ==
PROVIDERS: Emergency Provider Emergency Medicine; PCP Internal Medicine
DX: R07.2 Precordial pain (principal); R05.9 Cough, unspecified; J02.9 Acute pharyngitis, unspecified
CPT/HCPCS: 36415; 71046; 80053; 83690; 85025; 85379; 93005; 96372; 99284; J1885

== ENCOUNTER → 2025-08-24 09:06 | Outpatient (BNV) | payer MEDICAID, SELFPAY | PROVIDERS: Emergency Provider Emergency Medicine; PCP Internal Medicine; Visit Provider Radiology Diagnostic Radiology | DX: R07.2 Precordial pain (principal) | CPT/HCPCS: 71046 ==

== ENCOUNTER → 2025-08-24 09:06 | Outpatient (BNV) | payer MEDICAID, SELFPAY | PROVIDERS: Emergency Provider Emergency Medicine; PCP Internal Medicine; Visit Provider Internal Medicine | DX: R94.31 Abnormal electrocardiogram [ECG] [EKG] (principal); R07.2 Precordial pain | CPT/HCPCS: 93010 ==

== ENCOUNTER 2025-09-15 12:46 | Outpatient (REF) | payer MEDICAID, SELFPAY ==
--- OUTSIDE RECORDS SUMMARY | 2025-09-15 10:30 | XMS_ITS | Encounter Summary ---
Author Organization [employer] Address [address] [place] [address] 7 [place] [address] Care Team Providers Care Sales Utility Representative Name Role Phone Lucio Arroyo MD Primary Care Prov ider Reason for Referral * Imaging (Routine) - Closed Specialty Diagnoses / Procedures Referred By Contac t Referred To Contact Radiology Diagnoses Encounter for screening mammogram for malignant neoplasm of breast Procedures BI Mammogram Screening Tomosynthesis Bilateral Lucio Arroyo MD [address] [place] [address] Phone: tel: fax: [address] Phone: tel: fax: Referral ID Status Reason Start Date Expiration Date Visits Re quested Visits Authorized [id number] Closed 09/15/2025 09/15/2026 1 1 Encounter Details Date Type Department Care Team (Late st Contact Info) Description 09/15/2025 10:30 AM EDT Office Visit [facility] [address] [place] [address] Lucio Arroyo MD [address] [place] [address] Encounter for screening mammogram for malignant neoplasm of breast (Primary Dx); Vaginal discharge; Class 1 obesity due to excess calories without serious comorbidity with body mass index (BMI) of 30.0 to 30.9 in adult Social History Tobacco Use Types Packs/Day Years [...] housing situation today? I have crow carol 09/15/[address] you li ve. Do you have problems with any of the following? None of the above 09/15/2025 Food Insecurity Answer Date Recorded Within the past 12 months, y ou worried that your food would run out before you got money to buy more: Never True 09/15/2025 Within the past 12 months,th e food you bought just didn't last and you didn't have enough money to get more: Never True Transportation Answer Date Recorded In the past 12 months, has l ack of transportation kept you from medical appts, meetings, work or from getting things needed for daily living? No 09/15/2025 Utilities Answer Date Recorded In the past 12 months, has t he electric, gas, oil or water company threatened to shut off services in your home? No 09/15/2025 Depression Answer Date Recorded Patient Health Questionnaire-2 Score 3 04/05/2025 Internet Access Answer Date Recorded Internet Access Q1 Yes 09/15/2025 Internet Access Q2 Not on file 09/15/2025 Comments No Sex and Gender Information Value Date Recorded Sex Assigned at Female 09/23/2022 10:15 AM EDT Legal Sex Female 10:15 AM EDT Gender Identity Female 09/23/2022 10:15 AM EDT Sexual Orientation Straight 09/23/2022 10 :15 AM EDT documented as of this encounter Last Filed Vital Signs Vital Sign Reading Time Taken Comments Blood Pressure 122/84 09/15/2025 10:50 AM EDT Pulse 72 09/15/2025 10:50 AM EDT Temperature 37.1 C (98.7 F) 09/15/2025 10:50 AM EDT Respiratory Rate 16 09/15/2025 10:50 AM EDT Oxygen Saturation - - Inhaled Oxygen Concentration - - Weight 71.7 kg (158 lb) 09/15/2025 10:50 AM EDT Height 157.5 cm (5' 2 ) 09/15/2025 10:50 AM EDT Body Mass Index 28.9 09/15/2025 10:50 AM EDT documented in this encounter Progress Notes * Lucio Vivar MD - 09/15/2025 10:30 AM EDT Subjective Patient ID: Brigette Smith is a 44 y.o. female who presents for No chief complaint on file.. HPI Patient was seen on office for follow up weight Review of Systems Constitutional: Negative for chills, fatigue and fever. Respiratory: Negative for cough. Cardiovascular: Negative for chest pain. Objective Physical Exam Constitutional: Appearance: Normal appearance. Cardiovascular: Rate and Rhythm: Normal rate. Heart sounds: No murmur heard. Pulmonary: Effort: Pulmonary effort is normal. No respiratory distress. Breath sounds: No stridor. No wheezing or rhonchi. Neurological: General: No focal deficit present. Mental Status: She is alert and oriented to person, place, and time. Psychiatric: Mood and Affect: Mood normal. Behavior: Behavior normal. Assessment/Plan Problem List Items Addressed This Visit Class 1 obesity due to excess calories without serious comorbidity with body mass index (BMI) of 30.0 to 30.9 in adult Renew phentermine and topamax, continue low calorie diet and exercise as tolerated Relevant Medications phentermine 15 MG capsule topiramate (Topamax) 50 MG tablet Other Visit Diagnoses Encounter for screening mammogram for malignant neoplasm of breast - Primary Relevant Orders BI Mammogram Screening Tomosynthesis Bilateral Vaginal discharge Relevant Orders Bacterial Vaginosis Panel Chlamydia/N. Gonorrhoeae RNA, TMA, Vaginal documented in this encounter Miscellaneous Notes * Assessment & Plan Note - Lucio Vivar MD - 09/15/2025 12:44 PM EDTAssociated Problem(s): Class 1 obesity due to excess calories without serious comorbidity with bodymass index (BMI) of 30.0 to 30.9 in adult Renew phentermine and topamax, continue low calorie diet and exercise as tolerated documented in this encounter Plan of Treatment Scheduled Orders Name Type Priority Associated Diagnoses Orde r Schedule BI Mammogram Screening Tomosynthesis Bilateral Imaging Routine Encounter for screening mammogram for malignant neoplasm of breast Expected: 09/15/2025, Expires: 11/15/2026 Bacterial Vaginosis Panel Microbiology Routine Vaginal discharge Ordered: 09/15/2025 Chlamydia/N. Gonorrhoeae RNA, TMA, Vaginal Microbiology Routine Vaginal discharge Ordered: 09/15/2025 documented as of this encounter Visit Diagnoses Diagnosis Encounter for screening mammogram for malignant neoplasm of breast- Primary Vaginal discharge Leukorrhea, not specified as infective Class 1 obesity due to excess calories without serious comorbidity with body mass index (BMI) of 30.0 to 30.9 in adult documented in this encounter Additional Health Concerns Assessment Noted Time PHQ-9 Depression Total Score: 11 025 2:10 PM EDT documented as of this encounter Care Teams Sales Utility Representative Relationship Specialty Start Date End Date Lucio Arroyo MD [address] [place] [phone] PCP - General Internal Medicine 04/03/20 documented as of this encounter
--- OUTSIDE RECORDS SUMMARY | 2025-09-15 15:56 | XMS_ITS | Clinical Summary ---
Author Organization [employer] Address [address] [place] [address] Care Team Providers Care Patent Chemist Name Role Phone Lucio Arroyo MD Primary [...] 3 patch 12 09/23/20 24 025 Active ibuprofen 800 MG tabletIndicati ons:Acute periapical abscess TAKE 1 TABLET BY MOUTH EVERY 8 HOURS NEEDED FOR MILD PAIN. 90 tablet 08/05/20 25 Active phentermine 15 MG capsule Take 1 capsule (15 mg) by mouth before breakfast. 30 capsule 09/15/20 25 025 Active topiramate (Topamax) 50 MG tablet Take 1 tablet (50 mg) by mouth Once per day. 30 tablet 2 09/15/20 25 Active topiramate (Topamax) 50 MG tablet Take 1 tablet (50 mg) by mouth Once per day. 60 tablet 2 05/10/20 025 Discontinued(Re order (will not trigger notification to Pharmacy)) phentermine 15 MG capsule TAKE 1 CAPSULE (15 MG) BY MOUTH BEFORE BREAKFAST 30 capsule 08/05/20 025 Discontinued(Re order (will not trigger notification to Pharmacy)) Active Problems Problem Noted Date Diagnosed Date Class 1 obesity due to exces s calories without serious comorbidity with body mass index (BMI) of 30.0 to 30.9 in adult 05/10/2025 Assessment & Plan (09/15/2025 12:44 PM EDT): Renew phentermine and topamax, continue low calorie diet and exercise as tolerated Assessment & Plan (05/10/2025 1:26 PM EDT): Will start phentermine and topamax, risk vs benefits discussed, follow up in 3 months Current moderate episode of major depressive disorder without prior episode ([facility]) 04/13/2025 Assessment & Plan (04/13/2025 7:20 [...] Will place order Iron deficiency anemia kathy biran to inadequate dietary iron intake 11/07/2022 Assessment [...] Encounters Date Type Department Care Team Description 09/15/2025 10:30 AM EDT Office Visit [facility] [address] [place] [address] Lucio Arroyo MD Encounter for screening mammogram for malignant neoplasm of breast (Primary Dx); Vaginal discharge; Class 1 obesity due to excess calories without serious comorbidity with body mass index (BMI) of 30.0 to 30.9 in adult 09/15/2025 Travel 08/30/2025 9:45 AM EDT Office Visit [facility] [address] [place] [phone] Mary Weber MD Anxiety (Primary Dx); Chronic bilateral low back pain without sciatica 08/30/2025 Travel 08/24/2025 Orders Only [facility] External Provider, [facility] 08/22/2025 9:45 AM EDT Office Visit [address] [address] Mary Weber MD Anxiety (Primary Dx); Chronic bilateral low back pain without sciatica 08/22/2025 Travel 08/18/2025 9:15 AM EDT Office Visit [address] [address] Mary Weber MD Anxiety (Primary Dx); Chronic bilateral low back pain without sciatica 08/18/2025 Travel 08/15/2025 Telephone [facility] [address] [place] [address] Lucio Arroyo MD chart prep 08/08/2025 9:15 AM EDT Office Visit [address] [address] Mary Weber MD Anxiety (Primary Dx); Chronic bilateral low back pain without sciatica 08/08/2025 Travel 08/04/2025 9:15 AM EDT Office Visit [address] [address] Mary Weber MD Anxiety (Primary Dx); Chronic bilateral low back pain without sciatica 08/04/2025 Travel 08/02/2025 9:00 AM EDT Office Visit [address] [address] Mary Weber MD Anxiety (Primary Dx); Chronic bilateral low back pain without sciatica 08/02/2025 Refill [facility] [address] [place] [address] Lucio Arroyo MD Acute periapical abscess 08/02/2025 Travel 08/01/2025 9:30 AM EDT Office Visit [facility] [address] [place] [address] Mary Weber MD Anxiety (Primary Dx); Chronic bilateral low back pain without sciatica 08/01/2025 Travel from Last 3 Months Immunizations Immunization Administration [...] is your housing situation today? I have crowmelanie medina 09/15/[address] you li [...] 16 09/15/2025 10:50 AM EDT Oxygen Saturation 97% 01/07/2023 10:41 AM EST Inhaled Oxygen Concentration - - Weight 71.7 kg (158 lb) 09/15/2025 10:50 AM EDT Height 157.5 cm (5' 2 ) 09/15/2025 10:50 AM EDT Body Mass Index 28.9 09/15/2025 10:50 AM EDT Plan of Treatment Health Maintenance Due Date Last Done Comments Family Planning (PISQ) 1996 HPV Vaccines (1 - 3-dose series) 1996 Mammogram 2021 Cervical Cancer Screening 01/10/2024 HPV/Cotest 01/10/2024 01/10/2023, 11/15/2021 Pap Smear 01/10/2024 01/10/2023, 10/25, 11/08/2021 COVID-19 Vaccine ( season) 2025 Influenza Vaccine (#1) 2025 , 08/11/2018, 12/16/2017, Additional history exists Dental X-Ray: Bitewings 09/14/2025 09/13/20 24, 06/03/2024, 02/16/2024 Alcohol/Substance Use Screening 09/23/2025 09/23/2024 Depression Monitoring 10/06/2025 04/05/2025, 025 Dental Oral Exam 12/11/2025 06/09/2025, 09/13/2024 Dental Prophylaxis 12/11/2025 06/09/2025, 09/13/2024 Tobacco Screening 06/09/2026 06/09/2025 Disability Screening 09/15/2026 09/15/2025 SDOH Screening 09/15/2026 09/15/2025 Dental X-Ray: Full Mouth 09/14/2027 09/13/2024 Lipid [...] AUTO DIFFERENTIAL Routine 08/24/2025 9:12 AM EDT PROPHYLAXIS - ADULT Routine 06/09/2025 9 :00 AM EDT PERIODIC ORAL EVALUATION - ESTABLISHED PATIENT Routine 06/09/2025 9:00 AM EDT INTRAORAL - COMPLETE SERIES OF [...] AM EDT Narrative 08/24/2025 9:33 AM EDT [address] [address] XRay Report Signed Patient: Brigette Maria MR# : [id number] : 1980 Acct:[id number] Age/Sex: 44 / F ADM Date: 08/24/25 Loc: HO.ED Attending Dr: Ordering Physician: Silvino Cummings DO Date of Service: 08/24/25 Procedure(s): XR chest 2V Accession Number(s): [id number] cc: Lucio Arroyo MD; Silvino Cummings DO [...] in OV> 08/24/25929 DD/ 9 TD/TT: 08/24/25925 Manager Audit: Procedure Note Donotuseinterpreter, Image - 08/24/2025 [place] [address] XRay Report Signed Patient: Brigette MariaMR# : [id number] : 1980Acct:[id number] Age/Sex: 44 / FADM Date: 08/24/25 Loc: .ED Attending Dr: Ordering Physician: Silvino Cummings DO Date of Service: 08/24/25 Procedure(s): XR chest 2V Accession Number(s): [id number] cc: Lucio Arroyo MD; Silvino Cummings DO [...] in OV> 08/24/25929 DD/ 9 TD/TT: 08/24/25925 Manager Audit: [facility] External Provider IMG XR PROCEDURES Final Result * D Dimer High Sensitivity (08/24/2025 9:12 AM EDT) Pathologist [facility] [place] D Dimer High Sensitivity <150 NG/ML [facility] Comment:D-DIMER HS REFERENCE RANGENote: Our [...] Provider LAB BLOOD ORDERAB LES Final Result [facility] [address] [place] [phone] * (ABNORMAL) CBC auto differential (08/24/2025 9:12 AM EDT) Pathologist [facility] [place] White Blood Count 9.3 4.8 - 10.8 X10*3/uL [facility] Red Blood Count 3.63(L) 4.20 - 5.50 X10*6/uL [facility] Hemoglobin 10.5(L) 12.0 - 16.0 g/dl [facility] Hematocrit 31.2(L) 37.0 - 47.0 % [facility] Mean Corpuscular Volume 86.0 80.0 - 98.0 fL [facility] Mean Corpuscular Hemoglobin 28.9 27.0 - 33.0 pg [facility] Mean Corpuscular HGB Conc 33.7 31.0 - 35.0 g/dl [facility] Red Cell Distribution Width 13.0 11.0 - 16.0 % [facility] Platelet Count 328 160 - 400 X10*3/uL [facility] Mean Platelet Volume 9.5 9.4 - 12.3 fL [facility] Neutrophils Percent Auto 67.7 45 - 73 % [facility] Imm Gran Pct Auto 0.2 0.0 - 0.4 % [facility] Lymphocytes Percent Auto 23.6 20 - 40 % [facility] Monocytes Percent Auto 7.2 2 - 11 % [facility] Eosinophils Percent Auto 0.9 0 - 4 % [facility] Basophils Percent Auto 0.4 0 - 2 % [facility] NRBC Pct Auto 0.0 0.0 - 0.2 /100WBC [facility] Neutrophils Absolute Auto 6.3 2.0 - 8.3 x10*3/uL [facility] Imm Gran Abs Auto 0.02 0.00 - 0.03 X10*3/uL [facility] Lymphocytes Absolute Auto 2.2 1.2 - 4.9 X10*3/uL [facility] Monocytes Absolute Auto 0.7 0.1 - 1.2 X10*3/uL [facility] Eosinophils Absolute Auto 0.1 0.0 - 0.4 X10*3/uL [facility] Basophils Absolute Auto 0.0 0.0 - 0.2 X10*3/uL [facility] NRBC Abs Auto 0.000 0.0 - 0.012 X10*3/uL [facility] 08/24/2025 9:12 AM EDT 08/24/2025 9:15 AM EDT us Generic External Data Provider LAB BLOOD ORDERAB LES Final Result [facility] [address] [place] [address] [phone] * Lipase (08/24/2025 9:12 AM EDT) Lipase 18 8 - 78 U/L [facility] 08/24/2025 9:12 AM EDT 08/24/2025 9:15 AM EDT us Generic External Data Provider LAB BLOOD ORDERAB LES Final Result Performing Organization Address [facility]/ZIP Co de Phone Number [facility] [address] [place] [address] [phone] * (ABNORMAL) Comprehensive Metabolic Panel (08/24/2025 9:12 AM EDT) Sodium 142 135 - 145 mmol/L [facility] Potassium 4.0 3.3 - 5.1 mmol/L [facility] Chloride 108 96 - 108 mmol/L [facility] Carbon Dioxide 27 22 - 29 mmol/L [facility] Anion Gap 11(L) 12 - 20 [facility] Urea Nitrogen (BUN) 11 9 - 16 mg/dL [facility] Creatinine, Serum 0.64 0.5 - 1.4 mg/dL [facility] Creatinine Clr Calc Pharmacy 108.0 [facility] Comment:Provided height and weight: 157.48 cm,75.9 kg.eGFR (calculated from the MDRD study equation) and eCrCl(calculated from the Cockcroft-Gault equation) are based ondifferent parameters and may not yield comparable results.If eCrCl result is absurd, please check patient'sheight/weight. Estimated Glomerular Filt Rate >60 [facility] Comment:Chronic Kidney Disea se: Estimated GFR < 60 mL/min/1.82s8Vukoeo Kidney Disease: Estimated GFR < 15 mL/min/1.73m2 Glucose 97 60 - 115 mg/dL [facility] Calcium 9.2 8.4 - 10.2 mg/dL [facility] Bilirubin, Total 0.3 0.0 - 1.0 mg/dL [facility] Aspartate Amino Transferase 20 5 - 31 U/L [facility] Alanine Aminotransferase 19 0 - 31 U/L [facility] Total Protein 6.9 6.5 - 8.0 g/dL [facility] Albumin Level 4.0 3.5 - 5.0 g/dL [facility] Alkaline Phosphatase 54 39 - 117 U/L [facility] 08/24/2025 9:12 AM EDT 08/24/2025 9:15 AM EDT us Generic External Data Provider LAB BLOOD ORDERAB LES Final Result [facility] [address] [place] [phone] [phone] * Lipid Panel, Standard (02/13/2023 10:47 AM EDT) Cholesterol, Total 161 <200 mg/dL [facility] [employer] [employer] [place] [facility] HDL Cholesterol 58 > OR = 50 mg/dL [facility] [place] [facility] Triglycerides 117 <150 mg/dL [facility] [employer] [place] [facility] LDL Cholesterol 82 mg/dL (calc) [facility] [employer] [employer] [place] [facility] Comment: Reference range: <100 Desirable range <100 mg/dL for primary prevention; <70 mg/dL for patients with CHD or diabetic patients with > or = 2 CHD risk factors. LDL-C is now calculated using the Hernesto-Miesha calculation, which is a validated novel method providing better accuracy than the Friedewald equation in the estimation of LDL-C. Hernesto GOODRICH et al. FARHAN. 2013;310(19): 6571-7115 (http://education.[employer].BizAnytime/faq/OWV866) Chol/HDLC Ratio 2.8 <5.0 (calc) [facility] [employer] [place] [facility] Non-HDL Cholesterol 103 <130 mg/dL (calc) [facility] [employer] [place] [facility] Comment: For patients with diabetes plus 1 major ASCVD risk factor, treating to a non-HDL-C goal of <100 mg/dL (LDL-C of <70 mg/dL) is considered a therapeutic option. Blood Venous blood specimen / Unknown 02/13/2023 10:47 AM EDT 02/13/2023 10:49 AM EDT Narrative [facility] - 02/14/2023 5:07 AM EDT FASTING:YES FASTING: YES Lucio Vivar MD LAB BLOOD ORDERABL ES Final Result [address], [place] [address] [facility] [employer] [employer] [place] [facility] [address] [place] [phone] * (ABNORMAL) Thinprep TIS PAP And HPV mRNA E6/E7, CT/NG, TRICH (01/10/2023 2:03 PM EST) Clinical Information: ASCUS HPV POS 10/2021 COLPO NEG 3/ [facility] LMP: NONE GIVEN [facility] Prev. PAP: NONE GIVEN [facility] Prev. BX: Y [facility] SOURCE: None given [facility] Statement Of Adequacy: [facility] Comment: Satisfactory for evaluation. Endocervical/transformation zone component present. Interpretation/Re sult: Negative for intraepithelial lesion or malignancy. [facility] Infection Shift in vaginal belkys suggestive of bacterial vaginosis. [facility] COMMENT: This Pap test has been evaluated with computer assisted technology. [facility] Windows Server Support Technician: Trish [employer] Comment: ALS, CT(ASCP) CT screening location: [place] [address] Review Windows Server Support Technician: [facility] Comment: SXA, CT(ASCP) CT screening location: [place] [address] (Always Message) [facility] Comment: EXPLANATORY NOTE: The Pap is a [...] information. HPV nRNA E6/E7 Detected(A) Not Detected [facility] Comment: Methodology: Support Associate-Mediated Amplification This assay detects E6/E7 viral messenger RNA (mRNA) from 14 high-risk HPV types (16,18,31,33,35,39,45,51,52,56,58,59,66,68). Cervical sources are required for HPV testing. If a vaginal source from a patient who has had a total hysterectomy with removal of cervix was submitted, please contact the testing laboratory for alternative testing options. For additional information, please refer to http://[employer] A[employer]/faq/JHS824s2 (This link if provided for information/ educational purposes only.) Chlamydia trachomatis RNA, TMA, Urogenital NOT DETECTED NOT DETECTED [facility] Neisseria gonorrhoeae RNA, TMA, Urogenital NOT DETECTED NOT DETECTED [facility] Comment [facility] Comment: The analytical performance characteristics of this assay, when used to test SurePath(TM) specimens have been determined by [employer] [facility] [employer]. The modifications have not been cleared or approved by the FDA. This assay has been validated pursuant to the CLIA regulations and is used for clinical purposes. For additional information, please refer to https://[employer]).BizAnytime/faq/GED327 (This link is being provided for information/ educational purposes only.) Trichomonas vaginalis, QL, TMA, PAP Vial NOT DETECTED NOT DETECTED [facility] Comment: The analytical performance characteristics of this assay have been determined by [employer]. The modifications have not been cleared or approved by the FDA. This assay has been validated pursuant to the CLIA regulations and is used for clinical purposes. For additional information, please refer to http://[employer].Mobile Ads/ faq/Trichomonastma (This link is being provided for information/ educational purposes only.) NO COLLECTION DATE RECEIVED. WE HAVE USED THE DATE THE SPECIMEN WAS RECEIVED BY THIS LABORATORY THE COLLECTION DATE. IF THIS IS INCORRECT, PLEASE CONTACT CLIENT SERVICES. PHONE NUMBER: 01/08/2023 8:5 8 AM EST Narrative [facility] - 01/10/2023 2:03 PM EST FASTING: UNKNOWN Jaja Garcia [facility] LAB PATHOLOGY ORDERABLES Final Result Performing Organization Address City/[facility]/ZIP Co de Phone Number [address], [place] [address] [facility] [employer] [employer] [place] [employer] [address] [place] [address], (Nl2) [place] [address] * Hepatitis C Antibody with Reflex to HCV, RNA, Quantitative, Real-Time PCR (01/07/2023 11:11 AM EST) Pathologist [facility] [place] Hepatitis C Antibody NON-REACT FLY NON-REACT FLY [facility] [employer] [employer] [place] [facility] Index 0.06 <1.00 [employer] [employer] [place] [facility] Comment: HCV antibody was non-reactive. There is no laboratory evidence of HCV infection. In most cases, no further action is required. However, if recent HCV exposure is suspected, a test for HCV RNA (test code 69042) is suggested. For additional information please refer to http://education.Mobile A[employer]/faq/CAX63b5 (This link is being provided for informational/ educational purposes only.) Blood Venous blood specimen / Unknown 01/07/2023 11:11 AM EST 01/07/2023 11:17 AM EST Jaja Garcia [facility] LAB BLOOD ORDERABLES Ida l Result Performing Organization Address City/[facility]/ZIP Co de Phone Number [address], [place] [address] [employer] [facility] [employer] [place] [employer] [address] [place] [address], (Nl2) [place] [address] * HIV-1/2 Antigen and Antibodies, Fourth Generation, with Reflexes (01/07/2023 11:11 AM EST) HIV Antigen/Antibody, 4th Generation NON-REAC TIVE NON-REAC TIVE [facility] Comment: HIV-1 antigen and HIV-1/HIV-2 antibodies [...] purpose. For additional information please refer to http://education.Mobile A[employer]/faq/SSX390 (This link is being provided for informational/ educational purposes only.) The performance of this assay has not been clinically validated in patients less than 2 years old. Blood Venous blood specimen / Unknown 01/07/2023 11:11 AM EST 01/07/2023 11:17 AM EST Jaja Garcia [facility] LAB BLOOD ORDERABLES Ida l Result [facility] [address], [place] [address] [employer] [facility] [employer] [place] [facility] [address] [facility], (Nl[address]) [place] [address] from Last 3 Months or Most Recently Relevant to Health Maintenance Insurance [facility] C3 DENTAL-[facility] MEDICAID STAND ADULT Care Teams Patent Chemist Relationship Specialty Start Date End Date Lucio Arroyo MD [address] [place] [address] PCP - General Internal Medicine 04/03/20
--- OUTSIDE RECORDS SUMMARY | 2025-09-15 15:56 | XMS_ITS | Clinical Summary ---
Author Organization [facility] Address [address] [place] [phone] Phone Care Team Providers Care Car Whacker Name Role Phone Unavailable Primary Care Provider Unavailabl e Surgical History Surgery Date Site/Laterality Comments CERVICAL BIOPSY W/ LOOP ELECTRODE EXCISION PROCEDURE: TX CONIZATION CERVIX W/WO D&C RPR ELTRD EXC; [...] EST Office Visit Obstetrics & Gynecology - [address] [phone] Devi Matute, [facility] [address] [place] [address] Health Maintenance Due Date Last [...] RESULTING AGENCY - 10/17/2021 12:40 PM EST [id number] THINPREP PAP, IMAGED: NEGATIVE FOR SQUAMOUS INTRAEPITHELIAL [...]
--- OUTSIDE RECORDS SUMMARY | 2025-09-15 15:56 | XMS_ITS | Encounter Summary ---
Author Organization [employer] Address [address] [place] [address] [place] [address] Care Team Providers Care Visual Display Manager Name Role Phone Lucio Arroyo MD Primary Care Prov ider Encounter Details Date Type Department Care Team (Latest Contact Info) Description 08/13/2019 Abstract [facility] Dental, Provider, DDS Social History Tobacco Use Types Packs/Day Years Used Date Smoking Tobacco: Never Assessed Comments Unknown Sex and Gender Information Value Date Recorded Sex Assigned at Female 09/23/2022 10:15 AM EDT Legal Sex Female 10:15 AM EDT Gender Identity Female 09/23/2022 10:15 AM EDT Sexual Orientation Straight 09/23/2022 10 :15 AM EDT documented as of this encounter Plan of Treatment Not on file documented as of this encounter Visit Diagnoses Not on filedocumented in this encounter Care Teams Visual Display Manager Relationship Specialty Start Date End Date Lucio Arroyo MD [address] [place] [id number] PCP - General Internal Medicine 04/03/20 documented as of this encounter
--- OUTSIDE RECORDS SUMMARY | 2025-09-15 15:56 | XMS_ITS | Encounter Summary ---
Author Organization [employer] Address [address] [place] [address] Care Team Providers Care Feller Buncher Operator Name Role Phone Lucio Arroyo MD Primary Care Prov ider Encounter Details Date Type Department Care Team (Late st Contact Info) Description 01/24/2023 Abstract [facility] ADULT D[facility]AL [address] [place] [address] Yolande Dexter, DDS [address] [place] [address] Social History Tobacco Use Types Packs/Day Years [...] documented as of this encounter Care Teams Feller Buncher Operator Relationship Specialty Start Date End Date Lucio Arroyo MD [address] [place] [phone] PCP - General Internal Medicine 04/03/20 documented as of this encounter
--- OUTSIDE RECORDS SUMMARY | 2025-09-15 15:56 | XMS_ITS | Encounter Summary ---
Author Organization [employer] Address [address] [place] [address] 7 [place] [address] Care Team Providers Care Surgical Nurse Practitioner Name Role Phone Lucio Arroyo MD Primary Care Prov ider Encounter Details Date Type Department Care Team (Latest Contact Info) Description 08/12/2022 Abstract [facility] Dental, Provider, DDS Social [...] on filedocumented in this encounter Care Teams Surgical Nurse Practitioner Relationship Specialty Start Date End Date Lucio Aroryo MD [address] [place] [phone] PCP - General Internal Medicine 04/03/20 documented as of this encounter
--- OUTSIDE RECORDS SUMMARY | 2025-09-15 15:56 | XMS_ITS | Encounter Summary ---
Author Organization [employer] Address [address] [place] [address] Care Team Providers Care Healthcare Customer Service Name Role Phone Lucio Arroyo MD Primary Care Prov ider Reason for Visit * Reason Onset Date Comments Appointment 03/17/2023 Brigette Wyatt OB 1980 Patient wants to know if partial is in office please advise. Encounter Details Date Type Department Care Team ([facility] Contact Info) Description 03/17/2023 Telephone [facility] ADULT DENTAL [address] [place] [address] Dayday Paulson DDS [address] [place] [address] Appointment (Brigette Alexander 1980 Patient wants to [...] documented in this encounter Plan of Treatment Not on file documented as of this encounter Visit Diagnoses Not on filedocumented in this encounter Additional Health Concerns Assessment Noted Time PHQ-9 Depression Total Score: 0 11/07/20 22 12:00 PM EST documented as of this encounter Care Teams Healthcare Customer Service Relationship Specialty Start Date End Date Lucio Arroyo MD [address] [place] [phone] PCP - General Internal Medicine 04/03/20 documented as of this encounter
--- OUTSIDE RECORDS SUMMARY | 2025-09-15 15:56 | XMS_ITS | Encounter Summary ---
Author Organization [employer] Address [address] [place] [address] Care Team Providers Care Partner Alliance Manager Name Role Phone Lucio Arroyo MD Primary Care Prov ider Reason for Visit * Reason Comments Med Refill Encounter Details Date Type Department Care Team ([facility] Contact Info) Description 10/10/2024 Refill [facility] [address] [place], [place] [phone] Lucio Arroyo MD [address] [place] [address] Acute periapical abscess Social History Tobacco Use [...] documented as of this encounter Care Teams Partner Alliance Manager Relationship Specialty Start Date End Date Lucio Arroyo MD [address] [place] [phone] PCP - General Internal Medicine 04/03/20 documented as of this encounter
--- OUTSIDE RECORDS SUMMARY | 2025-09-15 15:56 | XMS_ITS | Encounter Summary ---
Author Organization [employer] Address [address] [place] [address] Care Team Providers Care Caramel Coloring Operator Name Role Phone Lucio Arroyo MD Primary Care Prov ider Encounter Details Date Type Department Care Team (Latest Contact Info) Description 09/15/2025 Travel Social History Tobacco Use Types Packs/Day [...] documented as of this encounter Care Teams Caramel Coloring Operator Relationship Specialty Start Date End Date Lucio Arroyo MD [address] [place] [phone] PCP - General Internal Medicine 04/03/20 documented as of this encounter
--- OUTSIDE RECORDS SUMMARY | 2025-09-15 15:56 | XMS_ITS | Encounter Summary ---
Author Organization [employer] Address [address] [place] [address] Care Team Providers Care Prototype Engineer Name Role Phone Lucio Arroyo MD Primary Care Prov ider Reason for Visit * Reason Comments Med Refill Encounter Details Date Type Department Care Team ([facility] st Contact Info) Description 06/20/2023 Refill [facility] ADULT D[facility] [address] [place] [address] Yolande Dexter DDS [address] [place] [address] Acute periapical abscess Social History Tobacco Use [...] documented as of this encounter Care Teams Prototype Engineer Relationship Specialty Start Date End Date SawyerLucio Mabry MD [address] [place] [phone] PCP - General Internal Medicine 04/03/20 documented as of this encounter
[2025-09-15 17:14] LABS: Bacterial Vaginosis PCR POSITIVE (Negative); Candida Group PCR NOT DETECTED (Not Detect); Candida glab krusei PCR NOT DETECTED (Not Detect); Trichomonas vaginalis PCR NOT DETECTED (Not Detect)
[2025-09-15 17:46] LABS: CT PCR NOT DETECTED (Not Detect.); NG PCR NOT DETECTED (Not Detect.)
== END 2025-09-15 12:47 | disposition home or self-care (01) ==
LOC: HO.CHCLNP 12:46
PROVIDERS: Visit Provider Internal Medicine
DX: Z20.2 Contact with and (suspected) exposure to infections with a predominantly sexual mode of transmission (principal); N89.8 Other specified noninflammatory disorders of vagina
CPT/HCPCS: 81515; 87491; 87591